=== PATIENT | male | born 1940 | race Caucasian/White ===

== ENCOUNTER 2020-08-12 16:46 | Emergency (ER) | payer MEDICARE, BC ==
[2020-08-12] MEDS ORDERED: PROTONIX 40 MG IV IV ONE ×2 (17:38→17:49)
[2020-08-12] MEDS ORDERED: Reglan 10 MG/2 ML IV ONE (17:38)
[2020-08-12] MEDS ORDERED: Sodium Chloride 0.9% 1000 ML 1,000 ML IV STA (17:38)
[2020-08-12] MEDS ORDERED: MORPHINE SULFATE 4 MG INJ IV ONE ×2 (17:38→19:22)
[2020-08-12] MEDS ORDERED: TYLENOL 325 MG PO ONE (17:38)
--- NOTE | 2020-08-12 17:45 | ERPHSYRPT ---
- History of Present Illness Patient Subjective Stated Complaint: Pt c/o of fever, headache, cough, eyes burning, nauseous, fatigued, sore throat Triage Nursing Assessment: Pt brought to the ER by his , hypertensive, de nies pain at this time, overall feels bad, cough, congestion, fatigued, skin n/w/d, bowel sounds heard in all 4, nauseous, dry heaves Timing/Duration: day(s) (3), gradual onset, worse Severity: moderate Associated Symptoms: nausea, shortness of breath, cough, chills, chest pain, fever, headaches, loss of appetite, malaise, weakness, No vomiting Hx Tetanus, Diphtheria Vaccination/Date Given: Yes (UP TO DATE) Hx Influenza Vaccination/Date Given: No Hx Pneumococcal Vaccination/Date Given: No <FILIBERTO BONILLA - Last Filed: 08/12/20 18:50> <DANIKA LIM - Last Filed: 08/12/20 21:52> - History of Present Illness Time Seen by Provider: 08/12/20 16:51 Physician History: 79 years old male with multiple medical problems including coronary artery disease status post stenting, 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 Today he started to have nausea and dry heaving with minimal epigastric discomfort earlier which is improved now. Denies any abdominal pain otherwise. He was dry heaving for 5 minutes but could not vomit. No diarrhea. Denies any known sick contact. Cough is wet to dry and comes in bouts and associated shortness of breath with it. Patient is feeling weak tired and exhausted with no energy to do his routine activities. (FILIBERTO BONILLA) Allergies/Adverse Reactions: metoprolol tartrate [From Lopressor] Adverse Reaction (Verified 08/12/20 17:11) ramipril [From Altace] Adverse Reaction (Verified 08/12/20 17:11) Home Medications: Tamsulosin HCl 0.4 mg [Flomax 0.4 MG] 0.4 mg PO DAILY 08/04/14 [History] Warfarin Sodium 3 mg [Coumadin 3 MG] 3 mg PO DAILY 08/04/14 [History] Carvedilol 6.25 mg [Coreg 6.25 MG] 6.25 mg PO BID 08/12/20 [History] Finasteride [Proscar] 5 mg PO DAILY 08/12/20 [History] Lansoprazole [Prevacid] 30 mg PO DAILY 08/12/20 [History] Levocetirizine Dihydrochloride 5 mg PO DAILY 08/12/20 [History] Rosuvastatin Calcium 10 mg PO DAILY 08/12/20 [History] Travel Risk - International Travel Have you traveled outside of the country in past 3 weeks: No - Coronavirus Screening Are you exhibiting any of the following symptoms?: No Close contact with a COVID-19 positive Pt in past 14-21 Days: No <FILIBERTO BONILLA - Last Filed: 08/12/20 18:50> - Past Medical History Pertinent Past Medical History: Yes Neurological History: Stroke ENT History: No Pertinent History Cardiac History: Coronary Artery Disease, Deep Vein Thrombosis, High Cholesterol, Hypertension, Myocardial Infarction ([place]), Peripheral Vascular Disease Respiratory History: No Pertinent History Endocrine Medical History: No Pertinent History Musculoskeletal History: Degenerative Disk Disease, Osteoarthritis, Other GI Medical History: No Pertinent History History: Other Psycho-Social History: No Pertinent History Male Reproductive Disorders: No Pertinent History Other Medical History: 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 SX HX: STENT PLACMENT X 2, FILTER PLACEMENT IN LEFT GROIN - Past Surgical History Past Surgical History: Yes Neuro Surgical History: No Pertinent History Cardiac: Cardiac Catheterization, Cardiac Stent, Vascular Surgery Respiratory: No Pertinent History Gastrointestinal: Cholecystectomy Genitourinary: No Pertinent History Musculoskeletal: No Pertinent History Male Surgical History: No Pertinent History - Social History Smoking Status: Never smoker Exposure to second hand smoke: No Drug Use: none Patient Lives Alone: No <FILIBERTO BONILLA - Last Filed: 08/12/20 18:50> - Physical Exam General Appearance: no apparent distress, alert Eye Exam: PERRL/EOMI, eyes nml inspection Ears, Nose, Throat Exam: pharyngeal erythema Neck Exam: normal inspection, non-tender, supple, full range of motion Respiratory Exam: normal breath sounds, lungs clear, No chest tenderness Cardiovascular Exam: regular rate/rhythm, normal heart sounds Gastrointestinal/Abdomen Exam: soft, normal bowel sounds, tenderness (Minimal tenderness epigastrium. 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 Inferior Q waves), Q-wave <FILIBERTO BONILLA - Last Filed: 08/12/20 18:50> - CT Exams Abdomen/Pelvis CT Interpretation: Tele-radiologist Report (; Up to 4.7 cm with focal narrowing mid transverse colon possible stricture possible mass. Stable IVC filter within the right common iliac vein. Enlarged prostate gland remaining abdomen pelvis negative.) <DANIKA LIM - Last Filed: 08/12/20 21:52> Ordered Tests: Active Orders 24 hr Category Date Time Status EKG-ER Only STAT Care 08/12/20 17:38 Active IV Insertion STAT Care 08/12/20 17:38 Active IV Insertion-2nd Peripheral STAT Care 08/12/20 19:39 Active ABDOMEN AND PELVIS W/0 CONTRAS [CT] Stat Exams 08/12/20 18:58 Taken CHEST 1 VIEW (PORTABLE) Stat Exams 08/12/20 17:38 Taken BLOOD CULTURE Stat Lab 08/12/20 18:15 Received CBC W DIFF Stat Lab 08/12/20 18:00 Completed CMP Stat Lab 08/12/20 18:00 Completed LIPASE Stat Lab 08/12/20 18:00 Completed Lactic Acid Stat Lab 08/12/20 17:38 Completed PT INR [PROTIME WITH INR] Stat Lab 08/12/20 18:00 Completed TROPONIN Q3H Lab 08/12/20 18:00 Completed TROPONIN Q3H Lab 08/12/20 21:15 Received TROPONIN Q3H Lab 08/12/20 23:45 Ordered TROPONIN Q3H Lab 08/13/20 02:45 Ordered TROPONIN Q3H Lab 08/13/20 05:45 Ordered Medication Summary Discontinued Medications Generic Name Dose Route Start Last Admin Trade Name Ozzyq PRN Reason Stop Dose Admin Acetaminophen 975 mg 08/12/20 17:38 08/12/20 17:54 Tylenol 325 Mg PO 08/12/20 17:39 975 mg STAT ONE Administration Acetaminophen Confirm 08/12/20 17:49 Tylenol 325 Mg Administered 08/12/20 17:50 Dose 975 mg .ROUTE .STK-MED ONE Al Hydrox/Mg Hydrox/Simethicone Confirm 08/12/20 19:08 Maalox Es 30 Ml Unit Dose Administered 08/12/20 19:09 Dose 30 ml .ROUTE .STK-MED ONE Sodium Chloride 1,000 mls @ 499 mls/hr 08/12/20 17:38 08/12/20 20:11 Sodium Chloride 0.9% 1000 Ml IV 08/12/20 19:38 Infused .Q2H1M STA Infusion Sodium Chloride Confirm 08/12/20 17:50 Sodium Chloride 0.9% 1000 Ml Administered 08/12/20 17:51 Dose 1,000 mls @ ud .ROUTE .STK-MED ONE Lidocaine HCl Confirm 08/12/20 19:08 Xylocaine Hcl Viscous * Administered 08/12/20 19:09 Dose 15 ml .ROUTE .STK-MED ONE Magnesium Hydroxide 45 ml 08/12/20 19:02 08/12/20 19:10 Gi Cocktail 45 Ml (Maalox/Lidocaine) PO 08/12/20 19:03 45 ml STAT ONE Administration Metoclopramide HCl 10 mg 08/12/20 17:38 08/12/20 17:55 Reglan 10 Mg/2 Ml IV 08/12/20 17:39 10 mg STAT ONE Administration Metoclopramide HCl Confirm 08/12/20 17:49 Reglan 10 Mg/2 Ml Administered 08/12/20 17:50 Dose 10 mg .ROUTE .STK-MED ONE Morphine Sulfate 4 mg 08/12/20 17:38 08/12/20 17:57 Morphine Sulfate 4 Mg Inj IV 08/12/20 17:39 4 mg STAT ONE Administration Morphine Sulfate Confirm 08/12/20 17:49 Morphine Sulfate 4 Mg Inj Administered 08/12/20 17:50 Dose 4 mg .ROUTE .STK-MED ONE Morphine Sulfate 4 mg 08/12/20 19:22 08/12/20 19:24 Morphine Sulfate 4 Mg Inj IV 08/12/20 19:23 4 mg STAT ONE Administration Morphine Sulfate Confirm 08/12/20 19:23 Morphine Sulfate 4 Mg Inj Administered 08/12/20 19:24 Dose 4 mg .ROUTE .STK-MED ONE Pantoprazole Sodium 40 mg 08/12/20 17:38 08/12/20 17:57 Protonix 40 Mg Iv IV 08/12/20 17:39 40 mg STAT ONE Administration Pantoprazole Sodium Confirm 08/12/20 17:49 Protonix 40 Mg Iv Administered 08/12/20 17:50 Dose 40 mg IV .STK-MED ONE Lab/Rad Data: Laboratory Result Diagrams 08/12/20 18:00 08/12/20 18:00 Laboratory Results 08/12/20 08/12/20 08/12/20 Range/Units 18:00 18:00 18:00 WBC (4.0-10.5) K/mm3 RBC (4.1-5.6) M/mm3 Hgb (12.5-18.0) gm/dl Hct (42-50) % MCV (78-100) fl MCH (26-32) pg MCHC (32-36) g/dl RDW (11.5-14.0) % Plt Count (150-450) K/mm3 MPV (7.5-11.0) fl Gran % (36.0-66.0) % Eos # (Auto) (0-0.5) Absolute Lymphs (auto) (1.0-4.6) Absolute Monos (auto) (0.0-1.3) Lymphocytes % (24.0-44.0) % Monocytes % (0.0-12.0) % Eosinophils % (0.00-5.0) % Basophils % (0.0-0.4) % Absolute Granulocytes (1.4-6.9) Basophils # (0-0.4) PT 27.5 H (8.83-12.87) SECONDS INR 2.41 (0.8-3.0) Sodium 132 L (137-145) mmol/L Potassium 3.9 (3.5-5.1) mmol/L Chloride 103 (98-107) mmol/L Carbon Dioxide 23 (22-30) mmol/L Anion Gap 9.5 (5-15) MEQ/L BUN 13 (9-20) mg/dL Creatinine 1.16 (0.66-1.25) mg/dL Estimated GFR > 60.0 ML/MIN Glucose 112 H (74-106) mg/dL Lactic Acid (0.4-2.0) Calcium 8.1 L (8.4-10.2) mg/dL Total Bilirubin 0.50 (0.2-1.3) mg/dL AST 33 (17-59) U/L ALT 28 (0-50) U/L Alkaline Phosphatase 51 (38-126) U/L Troponin I < 0.012 (0.000-0.034) ng/mL Serum Total Protein 6.6 (6.3-8.2) g/dL Albumin 3.7 (3.5-5.0) g/dL Lipase 47 (23-300) U/L 08/12/20 08/12/20 Range/Units 18:00 17:38 WBC 4.2 (4.0-10.5) K/mm3 RBC 4.94 (4.1-5.6) M/mm3 Hgb 13.4 (12.5-18.0) gm/dl Hct 41.6 L (42-50) % MCV 84.2 (78-100) fl MCH 27.1 (26-32) pg MCHC 32.2 (32-36) g/dl RDW 16.6 H (11.5-14.0) % Plt Count 120 L (150-450) K/mm3 MPV 10.9 (7.5-11.0) fl Gran % 81.0 H (36.0-66.0) % Eos # (Auto) 0.02 (0-0.5) Absolute Lymphs (auto) 0.35 L (1.0-4.6) Absolute Monos (auto) 0.39 (0.0-1.3) Lymphocytes % 8.4 L (24.0-44.0) % Monocytes % 9.4 (0.0-12.0) % Eosinophils % 0.5 (0.00-5.0) % Basophils % 0.7 (0.0-0.4) % Absolute Granulocytes 3.37 (1.4-6.9) Basophils # 0.03 (0-0.4) PT (8.83-12.87) SECONDS INR (0.8-3.0) Sodium (137-145) mmol/L Potassium (3.5-5.1) mmol/L Chloride (98-107) mmol/L Carbon Dioxide (22-30) mmol/L Anion Gap (5-15) MEQ/L BUN (9-20) mg/dL Creatinine (0.66-1.25) mg/dL Estimated GFR ML/MIN Glucose (74-106) mg/dL Lactic Acid 0.7 (0.4-2.0) Calcium (8.4-10.2) mg/dL Total Bilirubin (0.2-1.3) mg/dL AST (17-59) U/L ALT (0-50) U/L Alkaline Phosphatase (38-126) U/L Troponin I (0.000-0.034) ng/mL Serum Total Protein (6.3-8.2) g/dL Albumin (3.5-5.0) g/dL Lipase (23-300) U/L - Progress Progress: improved Discussed with : Musa Will see patient in: office Counseled pt/family regarding: lab results, diagnosis, need for follow-up, rad results <DANIKA LIM - Last Filed: 08/12/20 21:52> - Progress Progress Note: 08/12/20 21:39 Patient initially evaluated by Dr. Bonilla. Work-up initiated by Dr. Bonilla. Patient endorsed to Dr. Lim at approximately [address] Lim advised to follow- up on pending CT abdomen pelvis and reassess patient. CT abdomen reveals right hemicolon area distended up to 4.7 cm with focal narrowing mid transverse colon. Query stricture versus possible mass. Stable IVC filter in her right common il iac vein. Enlarged prostate gland. Remaining abdomen pelvis negative. Patient reassessed. Epigastric pain essentially resolved. Imaging findings and lab results discussed with Dr. Sneed over phone conversation. Dr. Sneed states that he feels patient would be appropriate for discharge. I agree. Work-up of the possible mass identified on CAT scan abdomen pelvis will occur as an outpatient. Patient was updated on the findings as well. Patient understands importance of following up with his primary care doctor/his surgeon Dr. Millan for further evaluation of this mass. Case/CT abdomen pelvis findings/possible mass was discussed with Dr. Millan. He will follow up with patient as an outpatient. He will call patient's home in the morning to establish a follow-up appointment. 08/12/20 21:46 (DANIKA LIM) <FILIBERTO BONILLA - Last Filed: 08/12/20 18:50> - Departure Departure Disposition: Home Critical Care Time: No <DANIKA LIM - Last Filed: 08/12/20 21:52> - Departure Clinical Impression: Colon stricture, Colonic mass, Enlarged prostate Condition: Stable Referrals: KRIS SNEED [Primary Care Provider] - Additional Instructions: CAT scan abdomen pelvis performed on August 12, 2020 reveals right hemicolon air distention up to 4.7 cm with focal narrowing mid transverse colon possible stricture versus possible mass. Enlarged prostate gland identified as well. Due to the above-mentioned findings on CAT scan it is imperative that you follow-up with Dr. Sneed and or Dr. Millan your general surgeon for further evaluation and treatment of this possible mass of your large intestine. Discharge/Care Plan SHANA FERNANDO was seen on 08/12/20 in the Emergency Room. The patient was counseled regarding Diagnosis,Lab results, Imaging studies, need for follow up and when to return to the Emergency Room. Prescriptions given: Discharge Note I have spoken with the patient and/or caregivers. I have explained the patient's condition, diagnosis and treatment plan based on the information available to me at this time. I have answered the patient's and/or caregiver's questions and addressed any concerns. The patient and/or caregivers have as good understanding of the patient's diagnosis, condition and treatment plan as can be expected at this point. The vital signs have been stable. The patient's condition is stable and appropriate for discharge from the emergency department. The patient will pursue further outpatient evaluation with the primary care physician or other designated or consulting physician as outlined in the discharge instructions. The patient and/or caregivers are agreeable to this plan of care and follow-up instructions have been explained in detail. The patient and/or caregivers have received these instruction. The patient/and or caregivers are aware that any significant change in condition or worsening of symptoms should prompt an immediate return to this or the closest emergency department or call 911.
[2020-08-12] MEDS ORDERED: TYLENOL 325 MG ONE (17:49)
[2020-08-12] MEDS ORDERED: Reglan 10 MG/2 ML ONE (17:49)
[2020-08-12] MEDS ORDERED: MORPHINE SULFATE 4 MG INJ ONE ×2 (17:49→19:23)
[2020-08-12] MEDS ORDERED: Sodium Chloride 0.9% 1000 ML 1,000 ML ONE (17:50)
[2020-08-12 18:27] LABS: Absolute Neutrophil Ct (ANC) 3.37 (1.4-6.9); BASOPHIL % 0.7 % (0.0-0.4); Basophil (Absolute #) 0.03 (0-0.4); Eosinophil % 0.5 % (0.00-5.0); Eosinophil (Absolute #) 0.02 (0-0.5); Hematocrit 41.6 % (42-50); Hemoglobin 13.4 gm/dl (12.5-18.0); Lymphocyte (Absolute #) 0.35 (1.0-4.6); Lymphocytes % 8.4 % (24.0-44.0); Mean Cell Volume 84.2 fl (78-100); Mean Corpuscular Hemoglobin 27.1 pg (26-32); Mean Corpuscular Hgb Concent. 32.2 g/dl (32-36); Mean Platelet Volume 10.9 fl (7.5-11.0); Monocyte (Absolute #) 0.39 (0.0-1.3); Monocytes % 9.4 % (0.0-12.0); Platelet Count 120 K/mm3 (150-450); Red Blood Count 4.94 M/mm3 (4.1-5.6); Red Cell Distribution Width 16.6 % (11.5-14.0); White Blood Count 4.2 K/mm3 (4.0-10.5)
[2020-08-12 18:33] LABS: INR 2.41 (0.8-3.0); PROTIME 27.5 SECONDS (8.83-12.87)
[2020-08-12 18:37] LABS: ALBUMIN 3.7 g/dL (3.5-5.0); ALKALINE PHOSPHATASE 51 U/L (38-126); ANION GAP 9.5 MEQ/L (5-15); BLOOD UREA NITROGEN 13 mg/dL (9-20); CHLORIDE 103 mmol/L (98-107); Calcium 8.1 mg/dL (8.4-10.2); Carbon Dioxide 23 mmol/L (22-30); Creatinine 1 1.16 mg/dL (0.66-1.25); EST GLOMERULAR FILTRATION RATE > 60.0 ML/MIN; Glucose 112 mg/dL (74-106); LIPASE 47 U/L (23-300); Potassium 3.9 mmol/L (3.5-5.1); SGOT/AST 33 U/L (17-59); SGPT/ALT 28 U/L (0-50); SODIUM 132 mmol/L (137-145); Total Protein 6.6 g/dL (6.3-8.2)
[2020-08-12] MEDS ORDERED: GI COCKTAIL 45 ML (Maalox/Lidocaine) PO ONE (19:02)
[2020-08-12] MEDS ORDERED: MAALOX ES 30 ML UNIT DOSE ONE (19:08)
[2020-08-12] MEDS ORDERED: XYLOCAINE HCl Viscous ONE (19:08)
[2020-08-12 21:59] VITALS: BP 150/82; PULSE 72; O2SAT 95
[2020-08-12 22:55] LABS: Slide Review 1 YES
--- NOTE | 2020-08-13 08:56 | XRAY ---
Indication: Upper abdomen pain, short of breath, nausea. Multiple contiguous axial images obtained through the abdomen and pelvis without contrast as ordered. Comparison: July 02, 2010. Visualized lung bases again demonstrates right hemidiaphragm elevation with right base atelectasis. Mild increasing bibasilar subsegmental atelectasis/scarring. Heart is not enlarged. Noncontrasted stomach and bowel loops are nonobstructed. Normal appendix. Right hemicolon is now air distended up to 4.7 cm with transition point midtransverse colon. Query physiologic Camacho's ring versus stricture from scarring versus underlying mass. More distal colon is normal in course and caliber. No free fluid/air. Again previous cholecystectomy. Enlarged prostate gland impresses on the base of the bladder not previously imaged. Remaining liver, pancreas, spleen, adrenal glands, kidneys, ureters, and bladder are unremarkable for noncontrast exam. Increasing mild scattered aortoiliac calcifications without AAA. Stable IVC predominantly in the right common iliac vein. Osseous structures intact with mild osteopenia and mild/moderate multilevel thoracolumbar degenerative spondylosis. Impression: 1. New air distended right hemicolon up to mid transverse colon. Rule out Camacho's ring versus stricture from scarring versus mass. 2. Enlarged prostate gland. 3. Again incidental right hemidiaphragm elevation with adjacent lung atelectasis, IVC filter in right common iliac vein, and chronic bony findings.
--- NOTE | 2020-08-13 08:58 | XRAY ---
Indication: Headache and cough. Comparison: July 14, 2010. Portable chest again demonstrates chronic right hemidiaphragm elevation with adjacent atelectasis. Remaining heart and lungs unremarkable. Bony thorax intact again with mild degenerative changes. No new/acute findings.
== END 2020-08-12 22:05 | disposition home or self-care (01) ==
LOC: ED 16:46
DX: R50.9 Fever, unspecified (principal); R51.9 Headache, unspecified; R05 Cough; R11.0 Nausea; R53.83 Other fatigue; R07.0 Pain in throat; I25.10 Atherosclerotic heart disease of native coronary artery without angina pectoris; Z79.01 Long term (current) use of anticoagulants; K63.89 Other specified diseases of intestine; N40.0 Benign prostatic hyperplasia without lower urinary tract symptoms; I82.409 Acute embolism and thrombosis of unspecified deep veins of unspecified lower extremity; I10 Essential (primary) hypertension; E78.5 Hyperlipidemia, unspecified
CPT/HCPCS: 36000; 36415; 71045; 74176; 80053; 83605; 83690; 84484; 85025; 85610; 87040; 93005; 96360; 96361; 96374; 96375; 96376; 99285; J2270; A9270-GY

== ENCOUNTER 2020-08-14 02:24 | Observation (INO) | payer MEDICARE, BC ==
[2020-08-14] MEDS ORDERED: DECADRON 10MG INJ. IV ONE (02:57)
[2020-08-14] MEDS ORDERED: BABY ASPIRIN 81 MG CHEW PO ONE (02:58)
[2020-08-14] MEDS ORDERED: Zofran 4 MG/2 ML VIAL IV ONE (02:58)
[2020-08-14] MEDS ORDERED: BABY ASPIRIN 81 MG CHEW ONE (03:02)
[2020-08-14] MEDS ORDERED: Zofran 4 MG/2 ML VIAL ONE (03:02)
[2020-08-14] MEDS ORDERED: DECADRON 10MG INJ. ONE (03:02)
[2020-08-14] MEDS ORDERED: TYLENOL EXTRA STRENGTH 500 MG PO STA (03:03)
--- NOTE | 2020-08-14 03:06 | ERPHSYRPT ---
- History of Present Illness Time Seen by Provider: 08/14/20 02:47 Source: patient Exam Limitations: no limitations Physician History: Patient is here with cough, Covid-like symptoms. Seen yesterday for similar symptoms. Negative cardiac work-up and chest x-ray at that point time. Patient did have a CT scan that demonstrated possible colon cancer. He does have foll ow-up scheduled for this. Patient has no other falls, trauma, new symptoms. Patient states he has continued cough with a borderline fever. Therefore, he returns to the emergency department today. He states he has been doing home Tylenol and ibuprofen. States that he is concerned because he has not been sleeping very much. He is also been doing [id number] cough medication. Timing/Duration: day(s) Severity: moderate Modifying Factors: Improves With: other Associated Symptoms: other Allergies/Adverse Reactions: metoprolol tartrate [From Lopressor] Adverse Reaction (Verified 08/14/20 03:11) ramipril [From Altace] Adverse Reaction (Verified 08/14/20 03:11) Home Medications: Tamsulosin HCl 0.4 mg [Flomax 0.4 MG] 0.4 mg PO DAILY 08/04/14 [History] Warfarin Sodium 3 mg [Coumadin 3 MG] 3 mg PO DAILY 08/04/14 [History] Carvedilol 6.25 mg [Coreg 6.25 MG] 6.25 mg PO BID 08/12/20 [History] Finasteride [Proscar] 5 mg PO DAILY 08/12/20 [History] Lansoprazole [Prevacid] 30 mg PO DAILY 08/12/20 [History] Levocetirizine Dihydrochloride 5 mg PO DAILY 08/12/20 [History] Rosuvastatin Calcium 10 mg PO DAILY 08/12/20 [History] Hx Tetanus, Diphtheria Vaccination/Date Given: Yes (UP TO DATE) Hx Influenza Vaccination/Date Given: No Hx Pneumococcal Vaccination/Date Given: No Travel Risk - International Travel Have you traveled outside of the country in past 3 weeks: No - Coronavirus Screening Are you exhibiting any of the following symptoms?: Yes - Review of Systems Constitutional: Fever, Chills Eyes: No Symptoms Ears, Nose, & Throat: No Symptoms Respiratory: Cough, No Dyspnea Cardiac: No Chest Pain, No Edema, No Syncope Abdominal/Gastrointestinal: No Abdominal Pain, No Nausea, No Vomiting, No Diarrhea Genitourinary Symptoms: No Dysuria Musculoskeletal: No Back Pain, No Neck Pain Skin: No Rash Neurological: No Dizziness, No Focal Weakness, No Sensory Changes Psychological: No Symptoms Endocrine: No Symptoms All Other Systems: Reviewed and Negative - Past Medical History Pertinent Past Medical History: Yes Neurological History: Stroke ENT History: No Pertinent History Cardiac History: Coronary Artery Disease, Deep Vein Thrombosis, High Cholesterol, Hypertension, Myocardial Infarction ([place]), Peripheral Vascular Disease Respiratory History: No Pertinent History Endocrine Medical History: No Pertinent History Musculoskeletal History: Degenerative Disk Disease, Osteoarthritis, Other GI Medical History: No Pertinent History History: Other Psycho-Social History: No Pertinent History Male Reproductive Disorders: No Pertinent History Other Medical History: 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 SX HX: STENT PLACMENT X 2, FILTER PLACEMENT IN LEFT GROIN - Past Surgical History Past Surgical History: Yes Neuro Surgical History: No Pertinent History Cardiac: Cardiac Catheterization, Cardiac Stent, Vascular Surgery Respiratory: No Pertinent History Gastrointestinal: Cholecystectomy Genitourinary: No Pertinent History Musculoskeletal: No Pertinent History Male Surgical History: No Pertinent History - Social History Smoking Status: Never smoker Exposure to second hand smoke: No Drug Use: none Patient Lives Alone: No - Nursing Vital Signs Nursing Vital Signs: Initial Vital Signs Temperature 100.3 F 08/14/20 02:25 Pulse Rate 77 08/14/20 02:25 Respiratory Rate 18 08/14/20 02:25 Blood Pressure 162/84 08/14/20 02:25 O2 Sat by Pulse Oximetry 94 L 08/14/20 02:25 Pain Scale Pain Intensity 7 - Physical Exam General Appearance: no apparent distress, alert Eye Exam: PERRL/EOMI, eyes nml inspection Ears, Nose, Throat Exam: normal ENT inspection, TMs normal, pharynx normal, moist mucous membranes Neck Exam: normal inspection, non-tender, supple, full range of motion Respiratory Exam: normal breath sounds, lungs clear, other (Lungs clear, no wheezing.), No respiratory distress Cardiovascular Exam: regular rate/rhythm, normal heart sounds, normal peripheral pulses Gastrointestinal/Abdomen Exam: soft, normal bowel sounds, No tenderness, No mass Back Exam: normal inspection, normal range of motion, No CVA tenderness, No vertebral tenderness Extremity Exam: normal inspection, normal range of motion, pelvis stable Neurologic Exam: alert, oriented x 3, cooperative, normal mood/affect, nml cerebellar function, nml station & gait, sensation nml, No motor deficits Skin Exam: normal color, warm, dry, No rash Lymphatic Exam: No adenopathy - Course Nursing assessment & vital signs reviewed: Yes EKG Interpreted by Me: Sinus Rhythm Ordered Tests: Active Orders 24 hr Category Date Time Status Weight Clerk STAT Care 08/14/20 02:59 Active Code Status Order ROUTINE Care 08/14/20 04:47 Active IV Care Q6H Care 08/14/20 04:[address] in Observation ROUTINE Care 08/14/20 04:47 Active CHEST 1 VIEW (PORTABLE) Stat Exams 08/14/20 02:58 Taken CBC W DIFF AM.LAB Lab 08/15/20 04:00 Ordered CBC W DIFF Stat Lab 08/14/20 03:00 Completed CMP Stat Lab 08/14/20 03:00 Completed LIPASE Stat Lab 08/14/20 03:00 Completed Lactic Acid AM.LAB Lab 08/15/20 04:00 Ordered NT PRO BNP Stat Lab 08/14/20 03:00 Completed TROPONIN Q3H Lab 08/14/20 03:00 Completed TROPONIN Q3H Lab 08/14/20 06:00 Ordered TROPONIN Q3H Lab 08/14/20 09:00 Ordered TROPONIN Q3H Lab 08/14/20 12:00 Ordered TROPONIN Q3H Lab 08/14/20 15:00 Ordered Medication Summary Generic Name Dose Route Start Last Admin Trade Name Freq PRN Reason Stop Dose Admin Propofol 100 mls @ 2.562 mls/hr 08/14/20 04:37 Propofol 1000 Mg/100 Ml Bottle IV 09/13/20 04:36 .Q24H PRN AGITATION Protocol 5 MCG/KG/MIN Piperacillin Sod/Tazobactam 100 mls @ 200 mls/hr 08/14/20 06:00 Sod 4.5 gm/ Sodium Chloride IV 09/13/20 05:59 Q6HT PERRI Ketorolac Tromethamine 30 mg 08/14/20 04:47 Toradol 30 Mg Injection IV 08/19/20 04:46 Q6H PRN PRN PAIN Morphine Sulfate 4 mg 08/14/20 04:47 Morphine Sulfate 4 Mg Inj IV 08/19/20 04:46 Q4H PRN PRN PAIN Ondansetron HCl 4 mg 08/14/20 04:47 Zofran 4 Mg/2 Ml Vial IV 09/13/20 04:46 Q6H PRN PRN NAUSEA/VOMITING Discontinued Medications Generic Name Dose Route Start Last Admin Trade Name Freq PRN Reason Stop Dose Admin Acetaminophen 1,000 mg 08/14/20 03:03 08/14/20 03:09 Tylenol Extra Strength 500 Mg PO 08/14/20 03:04 1,000 mg STAT STA Administration Acetaminophen Confirm 08/14/20 03:08 Tylenol Extra Strength 500 Mg Administered 08/14/20 03:09 Dose 1,000 mg .ROUTE .STK-MED ONE Aspirin 324 mg 08/14/20 02:58 08/14/20 03:05 Baby Aspirin 81 Mg Chew PO 08/14/20 02:59 324 mg STAT ONE Administration Aspirin Confirm 08/14/20 03:02 Baby Aspirin 81 Mg Chew Administered 08/14/20 03:03 Dose 324 mg .ROUTE .STK-MED ONE Dexamethasone Sodium Phosphate 10 mg 08/14/20 02:57 08/14/20 03:05 Decadron 10mg Inj. IV 08/14/20 02:58 10 mg STAT ONE Administration Dexamethasone Sodium Phosphate Confirm 08/14/20 03:02 Decadron 10mg Inj. Administered 08/14/20 03:03 Dose 10 mg .ROUTE .STK-MED ONE Ondansetron HCl 8 mg 08/14/20 02:58 08/14/20 03:03 Zofran 4 Mg/2 Ml Vial IV 08/14/20 02:59 8 mg STAT ONE Administration Ondansetron HCl Confirm 08/14/20 03:02 Zofran 4 Mg/2 Ml Vial Administered 08/14/20 03:03 Dose 8 mg .ROUTE .STK-MED ONE Lab/Rad Data: Laboratory Result Diagrams 08/14/20 03:00 08/14/20 03:00 Laboratory Results 08/14/20 08/14/20 08/14/20 Range/Units 03:30 03:00 03:00 WBC (4.0-10.5) K/mm3 RBC (4.1-5.6) M/mm3 Hgb (12.5-18.0) gm/dl Hct (42-50) % MCV (78-100) fl MCH (26-32) pg MCHC (32-36) g/dl RDW (11.5-14.0) % Plt Count (150-450) K/mm3 MPV (7.5-11.0) fl Gran % (36.0-66.0) % Eos # (Auto) (0-0.5) Absolute Lymphs (auto) (1.0-4.6) Absolute Monos (auto) (0.0-1.3) Lymphocytes % (24.0-44.0) % Monocytes % (0.0-12.0) % Eosinophils % (0.00-5.0) % Basophils % (0.0-0.4) % Absolute Granulocytes (1.4-6.9) Basophils # (0-0.4) Sodium 132 L (137-145) mmol/L Potassium 3.6 (3.5-5.1) mmol/L Chloride 102 (98-107) mmol/L Carbon Dioxide 23 (22-30) mmol/L Anion Gap 10.9 (5-15) MEQ/L BUN 14 (9-20) mg/dL Creatinine 1.15 (0.66-1.25) mg/dL Estimated GFR > 60.0 ML/MIN Glucose 125 H (74-106) mg/dL Calcium 8.2 L (8.4-10.2) mg/dL Total Bilirubin 0.90 (0.2-1.3) mg/dL AST 260 H (17-59) U/L ALT 387 H (0-50) U/L Alkaline Phosphatase 120 (38-126) U/L Troponin I < 0.012 (0.000-0.034) ng/mL NT-Pro-B Natriuret Pep 856 (0-1800) pg/mL Serum Total Protein 6.6 (6.3-8.2) g/dL Albumin 3.7 (3.5-5.0) g/dL Lipase 51 (23-300) U/L SARS-CoV-2 (PCR) POSITIVE A (NEGATIVE) Slides for Path Review 08/14/20 Range/Units 03:00 WBC 4.3 (4.0-10.5) K/mm3 RBC 4.70 (4.1-5.6) M/mm3 Hgb 12.9 (12.5-18.0) gm/dl Hct 39.4 L (42-50) % MCV 83.8 (78-100) fl MCH 27.4 (26-32) pg MCHC 32.7 (32-36) g/dl RDW 16.6 H (11.5-14.0) % Plt Count 105 L (150-450) K/mm3 MPV 10.2 (7.5-11.0) fl Gran % 86.7 H (36.0-66.0) % Eos # (Auto) 0 (0-0.5) Absolute Lymphs (auto) 0.33 L (1.0-4.6) Absolute Monos (auto) 0.23 (0.0-1.3) Lymphocytes % 7.7 L (24.0-44.0) % Monocytes % 5.4 (0.0-12.0) % Eosinophils % 0.0 (0.00-5.0) % Basophils % 0.2 (0.0-0.4) % Absolute Granulocytes 3.72 (1.4-6.9) Basophils # 0.01 (0-0.4) Sodium (137-145) mmol/L Potassium (3.5-5.1) mmol/L Chloride (98-107) mmol/L Carbon Dioxide (22-30) mmol/L Anion Gap (5-15) MEQ/L BUN (9-20) mg/dL Creatinine (0.66-1.25) mg/dL Estimated GFR ML/MIN Glucose (74-106) mg/dL Calcium (8.4-10.2) mg/dL Total Bilirubin (0.2-1.3) mg/dL AST (17-59) U/L ALT (0-50) U/L Alkaline Phosphatase (38-126) U/L Troponin I (0.000-0.034) ng/mL NT-Pro-B Natriuret Pep (0-1800) pg/mL Serum Total Protein (6.3-8.2) g/dL Albumin (3.5-5.0) g/dL Lipase (23-300) U/L SARS-CoV-2 (PCR) (NEGATIVE) Slides for Path Review YES - Progress Progress: improved Progress Note: 08/14/20 03:05 Patient here with cough, fever, chills. Differential diagnosis includes STEMI, NSTEMI, COVID-19, pneumonia, electrolyte abnormality. We will do an outpatient Covid swab, chest x-ray, Decadron. We will do basic labs, troponin, EKG. EKG compared to EKG from number. This EKG demonstrated no obvious abnormalities compared to the previous. 08/14/20 04:51 Patient has elevated liver enzymes. Patient also has positive Covid. Was likely need an ultrasound this morning. However given his Covid we will meet the patient to the hospital given that he is mildly hypoxic, coughing, this is his second visit in 24 hours. Discussed over the phone with on-call physician, Dr. Garibay. He agrees with admission. He states that he will follow-up on the liver enzymes. They were normal 24 hours ago. Therefore patient may benefit from right upper quadrant ultrasound or repeat imaging of his abdomen. After reviewing labs, appropriate imaging, discussion with patient and family. We decided the patient should be admitted to the hospital. I called the inpatient team discussed history, physical and results with them in detail. We decided on the plan of action and admission to [facility]. We agreed on appropriate consults and who would call them. Discussed with Dr.: Other (Stephanie) Will see patient in: hospital (observation) - Departure Departure Disposition: Home Clinical Impression: COVID-19, Elevated LFTs Condition: Stable Critical Care Time: No Referrals: KRIS SNEED [Primary Care Provider] -
[2020-08-14] MEDS ORDERED: TYLENOL EXTRA STRENGTH 500 MG ONE (03:08)
[2020-08-14 03:10] LABS: Absolute Neutrophil Ct (ANC) 3.72 (1.4-6.9); BASOPHIL % 0.2 % (0.0-0.4); Basophil (Absolute #) 0.01 (0-0.4); Eosinophil (Absolute #) 0 (0-0.5); Hematocrit 39.4 % (42-50); Hemoglobin 12.9 gm/dl (12.5-18.0); Lymphocyte (Absolute #) 0.33 (1.0-4.6); Lymphocytes % 7.7 % (24.0-44.0); Mean Cell Volume 83.8 fl (78-100); Mean Corpuscular Hemoglobin 27.4 pg (26-32); Mean Corpuscular Hgb Concent. 32.7 g/dl (32-36); Mean Platelet Volume 10.2 fl (7.5-11.0); Monocyte (Absolute #) 0.23 (0.0-1.3); Monocytes % 5.4 % (0.0-12.0); Neutrophil % 86.7 % (36.0-66.0); Platelet Count 105 K/mm3 (150-450); Red Cell Distribution Width 16.6 % (11.5-14.0); White Blood Count 4.3 K/mm3 (4.0-10.5)
[2020-08-14 03:32] LABS: ALBUMIN 3.7 g/dL (3.5-5.0); ALKALINE PHOSPHATASE 120 U/L (38-126); ANION GAP 10.9 MEQ/L (5-15); BLOOD UREA NITROGEN 14 mg/dL (9-20); CHLORIDE 102 mmol/L (98-107); Calcium 8.2 mg/dL (8.4-10.2); Carbon Dioxide 23 mmol/L (22-30); Creatinine 1 1.15 mg/dL (0.66-1.25); EST GLOMERULAR FILTRATION RATE > 60.0 ML/MIN; Glucose 125 mg/dL (74-106); LIPASE 51 U/L (23-300); NT PRO BNP 856 pg/mL (0-1800); Potassium 3.6 mmol/L (3.5-5.1); SGOT/AST 260 U/L (17-59); SGPT/ALT 387 U/L (0-50); SODIUM 132 mmol/L (137-145); Total Protein 6.6 g/dL (6.3-8.2)
[2020-08-14 04:23] LABS: Slide Review 1 YES
[2020-08-14] MEDS ORDERED: Propofol 1000 mg/100 ml Bottle 100 ML IV PRN (04:37)
[2020-08-14] MEDS ORDERED: TORAdol 30 mg Injection IV PRN (04:47)
[2020-08-14] MEDS ORDERED: MORPHINE SULFATE 4 MG INJ IV PRN (04:47)
[2020-08-14] MEDS ORDERED: Zofran 4 MG/2 ML VIAL IV PRN (04:47)
[2020-08-14] MEDS ORDERED: Zosyn 3.375 GM Vial IV ONE (05:34)
[2020-08-14] MEDS ORDERED: Sodium Chloride 100ML MINI-BAG PLUS 100 ML IV ONE (05:35)
[2020-08-14] MEDS ORDERED: SODIUM CHLORIDE MINI IV SCH (06:00)
[2020-08-14] MEDS ORDERED: ZOSYN IV SCH (06:00)
[2020-08-14 06:32] LABS: Appearance SLIGHTLY CLOUDY (CLEAR); Bilirubin NEGATIVE (NEGATIVE); Blood SMALL Ery/ul (0-5); Epithelial Cells RARE /HPF (FEW); Glucose >=500 mg/dL (NEGATIVE); Ketones NEGATIVE (NEGATIVE); Leukocyte Esterase NEGATIVE (NEGATIVE); Mucus SLIGHT /HPF (NEGATIVE); Nitrite NEGATIVE (NEGATIVE); Protein,Urine Dip 100 (Negative); Specific Gravity 1.022 (1.005-1.025); Urobilinogen NEGATIVE mg/dL (0-1)
--- NOTE | 2020-08-14 09:01 | XRAY ---
Indication: Cough. Comparison: August 12, 2020. Portable apical lordotic chest less inflated again with chronic right hemidiaphragm elevation and right base atelectasis. Remaining heart and lungs unremarkable.
[2020-08-14] MEDS ORDERED: NON-FORMULARY ITEM (Lansoprazole [Prevacid] 30 MG) PO SCH (10:00)
[2020-08-14] MEDS ORDERED: NON-FORMULARY ITEM (Rosuvastatin Calcium [Rosuvastatin Calcium] 10 MG) PO SCH (10:00)
[2020-08-14] MEDS ORDERED: NON-FORMULARY ITEM (Levocetirizine Dihydrochloride [Levocetirizine Dihydrochloride] 5 MG) PO SCH (10:00)
[2020-08-14] MEDS: ZOCOR 20MG PO SCH (11:00)
[2020-08-14] MEDS: Proscar 5 MG PO SCH (11:00)
[2020-08-14] MEDS: CLARITIN 10 MG PO SCH (11:00)
[2020-08-14] MEDS: Protonix 40MG Tablet PO SCH (11:01)
[2020-08-14] MEDS: Flomax 0.4 MG PO SCH (11:01)
[2020-08-14] MEDS: Coreg 6.25 MG PO SCH ×2 (11:01→21:47)
[2020-08-14] MEDS ORDERED: REMDESIVIR 200 MG in Sodium Chloride 0.9% 250 ML 250 ML IV ONE (12:00)
[2020-08-14] MEDS ORDERED: Zosyn INJ 4.5 GM in Sodium Chloride 100ML MINI-BAG PLUS 100 ML IV SCH (12:00)
[2020-08-14] MEDS: Decadron 4 MG INJ IV SCH ×2 (12:16→21:47)
[2020-08-14] MEDS ORDERED: Coumadin 3 MG PO SCH (18:00)
[2020-08-14] MEDS ORDERED: Ativan 1 MG PO SCH (22:00)
[2020-08-15 07:15] LABS: Absolute Neutrophil Ct (ANC) 5.36 (1.4-6.9); Basophil (Absolute #) 0 (0-0.4); Eosinophil (Absolute #) 0 (0-0.5); Hematocrit 39.9 % (42-50); Hemoglobin 12.6 gm/dl (12.5-18.0); Lymphocyte (Absolute #) 0.29 (1.0-4.6); Lymphocytes % 4.9 % (24.0-44.0); Mean Cell Volume 85.4 fl (78-100); Mean Corpuscular Hgb Concent. 31.6 g/dl (32-36); Monocyte (Absolute #) 0.26 (0.0-1.3); Monocytes % 4.4 % (0.0-12.0); Neutrophil % 90.7 % (36.0-66.0); Platelet Count 101 K/mm3 (150-450); Red Blood Count 4.67 M/mm3 (4.1-5.6); Red Cell Distribution Width 17.3 % (11.5-14.0); White Blood Count 5.9 K/mm3 (4.0-10.5)
[2020-08-15 08:57] LABS: Slide Review 1 YES
[2020-08-15] MEDS ORDERED: REMDESIVIR 100 MG in Sodium Chloride 0.9% 100 ML IVPB 100 ML IV SCH (10:00)
[2020-08-15] MEDS ORDERED: DELTASONE 20 MG PO SCH (10:40)
[2020-08-15] MEDS: ZOCOR 20MG PO SCH (10:54)
[2020-08-15] MEDS: Protonix 40MG Tablet PO SCH (10:54)
[2020-08-15] MEDS: CLARITIN 10 MG PO SCH (10:55)
[2020-08-15] MEDS: Coreg 6.25 MG PO SCH (10:55)
[2020-08-15] MEDS: Flomax 0.4 MG PO SCH (10:55)
[2020-08-15] MEDS: Proscar 5 MG PO SCH (10:55)
[2020-08-15 11:32] VITALS: BP 126/69
[2020-08-15 14:09] VITALS: PULSE 60; O2SAT 93
[2020-08-16] MEDS ORDERED: DELTASONE 20 MG PO SCH (10:00)
--- NOTE | 2020-08-18 09:09 | HP ---
CHIEF COMPLAINT: Achiness, vomiting, cough, low grade fever. HISTORY OF PRESENT ILLNESS: The patient was seen yesterday in the emergency room and diagnosed with COVID and negative cardiac. Chest x-ray was I believe okay. I believe he got the antibodies and then went home. However, he came back the next evening feeling very bad, having trouble holding fluids down, hurting all over and coughing. He had a severe headache after the Eliana Faye antibodies which he said has gone away after I woke him up this morning. He also had some liver problems. He had a CT of his abdomen that found a mass in his colon. He is seeing Dr. Millan the next week to set up a scope I guess. He did not know his liver enzymes have gone up since the last time he was in the emergency room. I am not for sure what that is from. I will try to get a copy of the previous CT. PAST MEDICAL HISTORY: Prior to that he had some benign prostatic hypertrophy. He is anticoagulated for pulmonary emboli. History of myocardial infarction. He takes anticholesterol medicine. He has peripheral vascular disease, hypertension, degenerative disc disease, osteoarthritis. He said he is short of breath on exertion getting worse. HOME MEDICATIONS: Flomax 0.4 q.d., Coumadin 3 mg q.d., Coreg 6.25 q.d., Proscar 5 mg q.d., Prevacid 30 q.d., levocetirizine 5 mg q.d., rosuvastatin 10 mg q.d. He has not had a flu shot. He has not had a pneumonia shot. ALLERGIES: METOPROLOL. RAMIPRIL. REVIEW OF SYSTEMS: CONSTITUTIONAL: Fever, chills. HEENT: No problems hearing or seeing. RESPIRATORY: Having cough, some shortness of breath on exertion now. CVS: History of heart attack in the past, nothing recently. No bypass surgery. GI: The patient did have some vomiting earlier in the emergency room. He was able to keep clear fluids down for breakfast. : No problems urinating while he is on his medications. NEUROLOGIC: He has had some tiny strokes in the past he stated which showed up on CT. PSYCHOLOGIC: He denies any depression or changes in thought. PHYSICAL EXAMINATION: The patient is alert, orientated, appropriately aged. VITAL SIGNS: Temperature 100F, pulse 77, respirations 18, blood pressure 162/84. O2 saturation 94% this morning. Pain intensity was 7 because of the headache. HEENT: Pupils equal and reactive to light. NECK: Supple without adenopathy. CHEST: Few crackles bilateral. CVS: Regular rate. No murmurs or gallops. ABDOMEN: Little scars from cholecystectomy. Normal bowel sounds. No tenderness. EXTREMITIES: Some peripheral stasis changes. No edema. No heat. LAB DATA AND TESTS: The patient's electrolytes were normal except for sodium 132. His hemoglobin was 12.9, normal differential. His BNP was normal at 856. His SARS COVID-2 antibody was positive. His EKG with no changes from the past, sinus rhythm, essentially normal. Liver enzymes are slightly minimally elevated but were not two days earlier. Cardiac enzymes were normal x2. UA was normal. I did not find the D-dimer on the chart. The x-ray shows the right hemidiaphragm elevation with right base atelectasis and increase of basal segmental atelectasis scarring. CT of the chest and abdomen showed distended right hemicolon up the mid transverse; rule out Camacho's ring versus stricture from scarring versus mass. Inferior vena cava filter right common iliac. Chest x-ray showed some right base atelectasis. IMPRESSION: The patient has nausea, severe headache, malaise, myalgia from COVID post-antibodies the day before. PLAN: Will treat him with Decadron, Remdesivir, IV fluids, pain medicines. He has been referred for evaluation for the transverse colon lesion. PROGNOSIS: Fair.
== END 2020-08-15 14:23 | disposition home or self-care (01) ==
LOC: ED 02:24 → MED SURG 05:29
PROVIDERS: ADMIT Family Medicine; ATTEND Family Medicine
DX: U07.1 COVID-19 (principal); R94.5 Abnormal results of liver function studies; K63.9 Disease of intestine, unspecified; Z79.899 Other long term (current) drug therapy; Z79.01 Long term (current) use of anticoagulants; R53.81 Other malaise; M79.10 Myalgia, unspecified site; I25.10 Atherosclerotic heart disease of native coronary artery without angina pectoris
CPT/HCPCS: 36000; 36415; 71045; 80053; 81001; 83690; 83880; 84484; 85025; 93268; 94762; 96374; 96375; 99285; G0378; U0003; J1100; J2405; A9270-GY

== ENCOUNTER 2020-08-18 16:25 | Inpatient (IN) | payer MEDICARE, BC ==
[2020-08-18 16:53] LABS: Absolute Neutrophil Ct (ANC) 7.58 (1.4-6.9); BASOPHIL % 0.1 % (0.0-0.4); Basophil (Absolute #) 0.01 (0-0.4); Eosinophil (Absolute #) 0 (0-0.5); Hematocrit 41.9 % (42-50); Hemoglobin 13.3 gm/dl (12.5-18.0); Lymphocyte (Absolute #) 0.24 (1.0-4.6); Lymphocytes % 2.9 % (24.0-44.0); Mean Corpuscular Hgb Concent. 31.7 g/dl (32-36); Mean Platelet Volume 10.3 fl (7.5-11.0); Monocyte (Absolute #) 0.41 (0.0-1.3); Platelet Count 145 K/mm3 (150-450); Red Blood Count 4.93 M/mm3 (4.1-5.6); Red Cell Distribution Width 17.3 % (11.5-14.0); White Blood Count 8.2 K/mm3 (4.0-10.5)
[2020-08-18 17:00] LABS: INR 3.31 (0.8-3.0); PROTIME 37.9 SECONDS (8.83-12.87)
[2020-08-18 17:02] LABS: PTT 33.7 SECONDS (24.1-36.1)
--- NOTE | 2020-08-18 17:06 | XRAY ---
Indication: Hypoxia. Dyspnea. Positive Covid 19. Comparison: August 12 and August 14, 2020. Portable chest remains unchanged again demonstrating chronic right hemidiaphragm elevation with adjacent atelectasis. Remaining heart and lungs unremarkable. No new/acute findings.
[2020-08-18 17:13] LABS: ALBUMIN 3.2 g/dL (3.5-5.0); ANION GAP 8.4 MEQ/L (5-15); Calcium 8.2 mg/dL (8.4-10.2); Creatinine 1 1.28 mg/dL (0.66-1.25); EST GLOMERULAR FILTRATION RATE 57.9 ML/MIN; Potassium 3.9 mmol/L (3.5-5.1); Total Protein 6.2 g/dL (6.3-8.2)
--- NOTE | 2020-08-18 17:52 | ERPHSYRPT ---
- History of Present Illness Source: patient, EMS Exam Limitations: no limitations Patient Subjective Stated Complaint: Was tested covid pos aug 15 and spent 2 days admiitted to [facility] covid unit. sent home then back today d/t persistent cough and shortness of breath. Triage Nursing Assessment: Aaox3, labored resp noted, aug 15 tested postive for covid 19, her d/t increased sob and persisitent cough. Was discharged from [facility] covid unit 2 days ago. spo2 86 % on 5lnc at home. Physician History: 79 yo wm discharged from [facility] unit on 08/15/20 presents w low sats. Pt on 5L O2 at home. Pt has a dry cough/coryzas/myalgias/arthralgias but denies N/V /D/melena/hematochezia/chest pain. Timing/Duration: today Activities at Onset: rest Severity of Dyspnea-Max: severe Severity of Dyspnea-Current: moderate Possible Cause: no prior episodes Modifying Factors: Improves With: rest Associated Symptoms: cough, loss of appetite, weakness, No chest pain/discomfort, No edema, No fever, No insomnia, No hemoptysis, No calf pain, No dizziness, No heaviness, No heart racing, No lightheadedness, No leg swelling, No muscle spasms feet Allergies/Adverse Reactions: metoprolol tartrate [From Lopressor] Adverse Reaction (Verified 08/14/20 03:11) ramipril [From Altace] Adverse Reaction (Verified 08/14/20 03:11) Home Medications: Tamsulosin HCl 0.4 mg [Flomax 0.4 MG] 0.4 mg PO DAILY 08/04/14 [History] Warfarin Sodium 3 mg [Coumadin 3 MG] 2.5 mg PO DAILY 08/04/14 [History] Carvedilol 6.25 mg [Coreg 6.25 MG] 6.25 mg PO BID 08/12/20 [History] Finasteride [Proscar] 5 mg PO DAILY 08/12/20 [History] Lansoprazole [Prevacid] 30 mg PO DAILY 08/12/20 [History] Levocetirizine Dihydrochloride 5 mg PO DAILY 08/12/20 [History] Rosuvastatin Calcium 10 mg PO DAILY 08/12/20 [History] Hx Tetanus, Diphtheria Vaccination/Date Given: Yes (UP TO DATE) Hx Influenza Vaccination/Date Given: Yes Hx Pneumococcal Vaccination/Date Given: No Travel Risk - International Travel Have you traveled outside of the country in past 3 weeks: No - Coronavirus Screening Are you exhibiting any of the following symptoms?: Yes Symptoms: Cough: New Onset, Shortness of Breath Close contact with a COVID-19 positive Pt in past 14-21 Days: Yes - Review of Systems Constitutional: Chills, Fatigue, Lethargy Eyes: No Symptoms Ears, Nose, & Throat: Nose Congestion Respiratory: Cough, Dyspnea, Dyspnea on Exertion (MCNAIR) Cardiac: No Symptoms Abdominal/Gastrointestinal: No Nausea, No Vomiting, No Diarrhea Musculoskeletal: Arthralgias, Deformity Skin: No Symptoms Neurological: No Symptoms, Headache Psychological: No Symptoms Endocrine: No Symptoms Hematologic/Lymphatic: No Symptoms Immunological/Allergic: No Symptoms - Past Medical History Pertinent Past Medical History: Yes Neurological History: Stroke ENT History: No Pertinent History Cardiac History: Coronary Artery Disease, Deep Vein Thrombosis, High Cholesterol, Hypertension, Myocardial Infarction (CO), Peripheral Vascular Disease Respiratory History: No Pertinent History Endocrine Medical History: No Pertinent History Musculoskeletal History: Degenerative Disk Disease, Osteoarthritis, Other GI Medical History: No Pertinent History History: Other Psycho-Social History: No Pertinent History Male Reproductive Disorders: No Pertinent History Other Medical History: 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 SX HX: STENT PLACMENT X 2, FILTER PLACEMENT IN LEFT GROIN - Past Surgical History Past Surgical History: Yes Neuro Surgical History: No Pertinent History Cardiac: Cardiac Catheterization, Cardiac Stent, Vascular Surgery Respiratory: No Pertinent History Gastrointestinal: Cholecystectomy Genitourinary: No Pertinent History Musculoskeletal: No Pertinent History Male Surgical History: No Pertinent History - Social History Smoking Status: Never smoker Exposure to second hand smoke: No Drug Use: none Patient Lives Alone: No Significant Family History: no pertinent family hx - Nursing Vital Signs Nursing Vital Signs: Initial Vital Signs Temperature 98.9 F 08/18/20 16:26 Pulse Rate 62 08/18/20 16:26 Respiratory Rate 28 H 08/18/20 16:26 Blood Pressure 113/68 08/18/20 16:26 O2 Sat by Pulse Oximetry 93 L 08/18/20 16:26 Pain Scale Pain Intensity 0 - Physical Exam General Appearance: mild distress Eye Exam: PERRL/EOMI, eyes nml inspection Ears, Nose, Throat Exam: hearing grossly normal, normal ENT inspection, normal pharynx Neck Exam: normal inspection, non-tender, No Brudzinski, No Kernig's, No meningismus, No carotid bruit Respiratory Exam: respiratory distress (Mild), crackles/rales (1/2 up B) Cardiovascular/Chest Exam: normal heart sounds, regular rate/rhythm Abdominal/Gastrointestinal Exam: soft, normal bowel sounds, tenderness Extremity Exam: non-tender, normal range of motion, normal inspection Peripheral Pulses Exam: carotid (R): 2+, carotid (L): 2+ Neurologic Exam: alert, oriented x 3, cooperative, director compensation II-XII nml as tested, normal mood/affect, sensation nml, No motor deficits, No sensory deficit Skin Exam: normal color, warm, dry Lymphatic Exam: No adenopathy SpO2 Interpretation: normal SpO2: 95 - Course Nursing assessment & vital signs reviewed: Yes EKG Interpreted by Me: RATE (NSR/R60/Normal QT-QTc/Qwave3 and AVF/Flat T waves) - Radiology Exams Chest X-ray Interpretation: Discussed w/ radiologist (No change) Ordered Tests: Active Orders 24 hr Category Date Time Status Fitting Room Maintenance Mechanic STAT Care 08/18/20 16:30 Completed EKG-ER Only STAT Care 08/18/20 16:29 Completed IV Insertion STAT Care 08/18/20 16:45 Completed IV Insertion-2nd Peripheral STAT Care 08/18/20 16:45 Completed Oxygen-ED Only NON-REBREATHER 100% Care 08/18/20 16:29 Completed CHEST 1 VIEW (PORTABLE) Stat Exams 08/18/20 16:30 Completed BLOOD CULTURE Urgent Lab 08/18/20 16:30 Received CBC W DIFF AM.LAB Lab 08/19/20 04:00 Ordered CBC W DIFF Stat Lab 08/18/20 16:30 Completed CMP AM.LAB Lab 08/19/20 04:00 Ordered CMP Stat Lab 08/18/20 16:30 Completed D-DIMER QUANTITATIVE Stat Lab 08/18/20 16:30 Completed Lactic Acid AM.LAB Lab 08/19/20 04:00 Ordered Lactic Acid Stat Lab 08/18/20 16:52 Completed NT PRO BNP Stat Lab 08/18/20 16:30 Completed PROTIME WITH INR Stat Lab 08/18/20 16:30 Completed PTT Stat Lab 08/18/20 16:30 Completed TROPONIN Q3H Lab 08/18/20 16:30 Completed TROPONIN Q3H Lab 08/18/20 18:55 Completed TROPONIN Q3H Lab 08/18/20 22:30 Ordered TROPONIN Q3H Lab 08/19/20 00:30 Ordered TROPONIN Q3H Lab 08/19/20 01:30 Ordered TROPONIN Q3H Lab 08/19/20 03:30 Ordered TROPONIN Q3H Lab 08/19/20 04:30 Ordered TROPONIN Q3H Lab 08/19/20 06:30 Ordered UA W/RFX UR CULTURE Routine Lab 08/18/20 18:28 Ordered Transfer Order Routine Transfer 08/18/20 Completed Medication Summary Generic Name Dose Route Start Last Admin Trade Name Freq PRN Reason Stop Dose Admin Acetaminophen 500 mg 08/18/20 20:32 Tylenol Extra Strength 500 Mg PO 09/17/20 20:31 Q4HPRN PRN PAIN AND/OR FEVER Albuterol Sulfate 4 puff 08/18/20 18:27 Ventolin Common Canister IH 09/17/20 18:26 Q4H PRN PRN SHORTNESS OF BREATH/WHEEZING Dexamethasone Sodium Phosphate 4 mg 08/18/20 22:00 Decadron 4 Mg Inj IV 09/17/20 21:59 BID PERRI Famotidine 20 mg 08/18/20 22:00 Pepcid 20 Mg Vial IV 09/17/20 21:59 Q12HT PERRI Sodium Chloride 1,000 mls @ 0 mls/hr 08/18/20 18:30 Sodium Chloride 0.9% 1000 Ml IV 09/17/20 18:29 .Q0M PERRI KVO Remdesivir 100 mg/ Sodium 100 mls @ 100 mls/hr 08/19/20 22:00 Chloride IV 08/22/20 22:59 Q24H PERRI Remdesivir 200 mg/ Sodium 250 mls @ 125 mls/hr 08/18/20 22:00 Chloride IV 08/18/20 23:59 ONCE ONE Lorazepam 1 mg 08/18/20 20:32 Ativan 2 Mg/1 Ml Vial IV 09/17/20 20:31 Q6H PRN PRN ANXIETY Ondansetron HCl 4 mg 08/18/20 18:27 Zofran 4 Mg/2 Ml Vial IV 09/17/20 18:26 Q6H PRN PRN NAUSEA/VOMITING Discontinued Medications Generic Name Dose Route Start Last Admin Trade Name Yue PRN Reason Stop Dose Admin Dexamethasone Sodium Phosphate 4 mg 08/18/20 18:25 08/18/20 18:29 Decadron 4 Mg Inj IV 08/18/20 18:26 4 mg STAT ONE Administration Dexamethasone Sodium Phosphate Confirm 08/18/20 18:28 Decadron 4 Mg Inj Administered 08/18/20 18:29 Dose 4 mg .ROUTE .STK-MED ONE Remdesivir 100 mg/ Sodium 100 mls @ 100 mls/hr 08/18/20 18:45 Chloride IV 08/21/20 19:44 Q24H PERRI Remdesivir 200 mg/ Sodium 250 mls @ 125 mls/hr 08/18/20 18:33 Chloride IV 08/18/20 20:32 ONCE ONE Lab/Rad Data: Laboratory Result Diagrams 08/18/20 16:30 08/18/20 16:30 Laboratory Results 08/18/20 08/18/20 08/18/20 Range/Units 16:52 16:30 16:30 WBC (4.0-10.5) K/mm3 RBC (4.1-5.6) M/mm3 Hgb (12.5-18.0) gm/dl Hct (42-50) % MCV (78-100) fl MCH (26-32) pg MCHC (32-36) g/dl RDW (11.5-14.0) % Plt Count (150-450) K/mm3 MPV (7.5-11.0) fl Gran % (36.0-66.0) % Eos # (Auto) (0-0.5) Absolute Lymphs (auto) (1.0-4.6) Absolute Monos (auto) (0.0-1.3) Lymphocytes % (24.0-44.0) % Monocytes % (0.0-12.0) % Eosinophils % (0.00-5.0) % Basophils % (0.0-0.4) % Absolute Granulocytes (1.4-6.9) Basophils # (0-0.4) PT (8.83-12.87) SECONDS INR (0.8-3.0) APTT (24.1-36.1) SECONDS D-Dimer 565 H* (215-500) ng/mL Sodium (137-145) mmol/L Potassium (3.5-5.1) mmol/L Chloride (98-107) mmol/L Carbon Dioxide (22-30) mmol/L Anion Gap (5-15) MEQ/L BUN (9-20) mg/dL Creatinine (0.66-1.25) mg/dL Estimated GFR ML/MIN Glucose (74-106) mg/dL Lactic Acid 2.0 (0.4-2.0) Calcium (8.4-10.2) mg/dL Total Bilirubin (0.2-1.3) mg/dL AST (17-59) U/L ALT (0-50) U/L Alkaline Phosphatase (38-126) U/L Troponin I < 0.012 (0.000-0.034) ng/mL NT-Pro-B Natriuret Pep (0-1800) pg/mL Serum Total Protein (6.3-8.2) g/dL Albumin (3.5-5.0) g/dL 08/18/20 08/18/20 08/18/20 Range/Units 16:30 16:30 16:30 WBC 8.2 (4.0-10.5) K/mm3 RBC 4.93 (4.1-5.6) M/mm3 Hgb 13.3 (12.5-18.0) gm/dl Hct 41.9 L (42-50) % MCV 85.0 (78-100) fl MCH 27.0 (26-32) pg MCHC 31.7 L (32-36) g/dl RDW 17.3 H (11.5-14.0) % Plt Count 145 L (150-450) K/mm3 MPV 10.3 (7.5-11.0) fl Gran % 92.0 H (36.0-66.0) % Eos # (Auto) 0 (0-0.5) Absolute Lymphs (auto) 0.24 L (1.0-4.6) Absolute Monos (auto) 0.41 (0.0-1.3) Lymphocytes % 2.9 L (24.0-44.0) % Monocytes % 5.0 (0.0-12.0) % Eosinophils % 0.0 (0.00-5.0) % Basophils % 0.1 (0.0-0.4) % Absolute Granulocytes 7.58 H (1.4-6.9) Basophils # 0.01 (0-0.4) PT 37.9 H (8.83-12.87) SECONDS INR 3.31 H (0.8-3.0) APTT 33.7 (24.1-36.1) SECONDS D-Dimer (215-500) ng/mL Sodium 139 (137-145) mmol/L Potassium 3.9 (3.5-5.1) mmol/L Chloride 108 H (98-107) mmol/L Carbon Dioxide 26 (22-30) mmol/L Anion Gap 8.4 (5-15) MEQ/L BUN 34 H (9-20) mg/dL Creatinine 1.28 H (0.66-1.25) mg/dL Estimated GFR 57.9 ML/MIN Glucose 124 H (74-106) mg/dL Lactic Acid (0.4-2.0) Calcium 8.2 L (8.4-10.2) mg/dL Total Bilirubin 1.00 (0.2-1.3) mg/dL AST 177 H (17-59) U/L ALT 204 H (0-50) U/L Alkaline Phosphatase 80 (38-126) U/L Troponin I (0.000-0.034) ng/mL NT-Pro-B Natriuret Pep 454 (0-1800) pg/mL Serum Total Protein 6.2 L (6.3-8.2) g/dL Albumin 3.2 L (3.5-5.0) g/dL - Progress Progress: improved Air Movement: fair Progress Note: 08/18/20 18:[address] Garibay 08/18/20 18:26 Wants to start Decadron/Remdisivir 08/18/20 20:45 Pt w good sats on 100% FM - Departure Departure Disposition: Observation Clinical Impression: COVID-19 Condition: Stable Critical Care Time: No
[2020-08-18] MEDS ORDERED: Decadron 4 MG INJ IV ONE (18:25)
[2020-08-18] MEDS ORDERED: VENTOLIN COMMON CANISTER IH PRN (18:27)
[2020-08-18] MEDS ORDERED: Zofran 4 MG/2 ML VIAL IV PRN (18:27)
[2020-08-18] MEDS ORDERED: Decadron 4 MG INJ ONE (18:28)
[2020-08-18] MEDS ORDERED: Sodium Chloride 0.9% 1000 ML 1,000 ML IV SCH (18:30)
[2020-08-18] MEDS ORDERED: REMDESIVIR 200 MG in Sodium Chloride 0.9% 250 ML 250 ML IV ONE ×2 (18:33→22:00)
[2020-08-18] MEDS ORDERED: REMDESIVIR 100 MG in Sodium Chloride 0.9% 100 ML IVPB 100 ML IV SCH (18:45)
[2020-08-18] MEDS ORDERED: TYLENOL EXTRA STRENGTH 500 MG PO PRN (20:32)
[2020-08-18] MEDS ORDERED: Sodium Chloride 0.9% 250 ML 250 ML IV ONE (20:45)
[2020-08-18 21:22] LABS: Appearance CLEAR (CLEAR); Bilirubin SMALL (NEGATIVE); Blood NEGATIVE Ery/ul (0-5); Glucose >=500 mg/dL (NEGATIVE); Ketones NEGATIVE (NEGATIVE); Leukocyte Esterase NEGATIVE (NEGATIVE); Mucus SLIGHT /HPF (NEGATIVE); Nitrite NEGATIVE (NEGATIVE); Protein,Urine Dip 30 (Negative); Specific Gravity 1.023 (1.005-1.025); Urobilinogen 4 mg/dL (0-1)
[2020-08-18] MEDS: Pepcid 20 MG VIAL IV SCH (22:04)
[2020-08-18 22:06] LABS: Slide Review 1 YES
[2020-08-19] MEDS: Ativan 2 MG/1 ML VIAL IV PRN ×2 (00:04→21:43)
[2020-08-19 06:38] LABS: Absolute Neutrophil Ct (ANC) 5.71 (1.4-6.9); BASOPHIL % 0.2 % (0.0-0.4); Basophil (Absolute #) 0.01 (0-0.4); Eosinophil (Absolute #) 0 (0-0.5); Hematocrit 40.7 % (42-50); Hemoglobin 12.7 gm/dl (12.5-18.0); Lymphocyte (Absolute #) 0.29 (1.0-4.6); Lymphocytes % 4.6 % (24.0-44.0); Mean Cell Volume 86.2 fl (78-100); Mean Corpuscular Hemoglobin 26.9 pg (26-32); Mean Corpuscular Hgb Concent. 31.2 g/dl (32-36); Mean Platelet Volume 11.6 fl (7.5-11.0); Monocyte (Absolute #) 0.28 (0.0-1.3); Monocytes % 4.5 % (0.0-12.0); Neutrophil % 90.7 % (36.0-66.0); Platelet Count 145 K/mm3 (150-450); Red Blood Count 4.72 M/mm3 (4.1-5.6); Red Cell Distribution Width 17.6 % (11.5-14.0); White Blood Count 6.3 K/mm3 (4.0-10.5)
[2020-08-19 06:50] LABS: INR 2.85 (0.8-3.0); PROTIME 32.6 SECONDS (8.83-12.87)
[2020-08-19 06:54] LABS: ALBUMIN 2.8 g/dL (3.5-5.0); ALKALINE PHOSPHATASE 70 U/L (38-126); ANION GAP 8.1 MEQ/L (5-15); BLOOD UREA NITROGEN 34 mg/dL (9-20); CHLORIDE 110 mmol/L (98-107); Calcium 7.7 mg/dL (8.4-10.2); Carbon Dioxide 26 mmol/L (22-30); Creatinine 1 1.15 mg/dL (0.66-1.25); EST GLOMERULAR FILTRATION RATE > 60.0 ML/MIN; Glucose 116 mg/dL (74-106); Potassium 4.4 mmol/L (3.5-5.1); SGOT/AST 74 U/L (17-59); SGPT/ALT 163 U/L (0-50); SODIUM 139 mmol/L (137-145); Total Protein 5.7 g/dL (6.3-8.2)
[2020-08-19] MEDS ORDERED: Hydromorphone 1 mg/ml Injection IV PRN ×2 (08:57→10:12)
[2020-08-19 09:18] LABS: Slide Review 1 YES
[2020-08-19] MEDS: Pepcid 20 MG VIAL IV SCH ×2 (09:53→21:44)
[2020-08-19] MEDS: ZOCOR 20MG PO SCH (09:53)
[2020-08-19] MEDS: Decadron 4 MG INJ IV SCH ×3 (09:53→21:44)
[2020-08-19] MEDS: Flomax 0.4 MG PO SCH (09:53)
[2020-08-19] MEDS: Proscar 5 MG PO SCH (09:53)
[2020-08-19] MEDS: Coreg 6.25 MG PO SCH ×2 (09:53→21:43)
[2020-08-19] MEDS: Protonix 40MG Tablet PO SCH (09:53)
[2020-08-19] MEDS: CLARITIN 10 MG PO SCH ×2 (09:54→10:19)
[2020-08-19] MEDS ORDERED: NON-FORMULARY ITEM (Lansoprazole [Prevacid] 30 MG) PO SCH (10:00)
[2020-08-19] MEDS ORDERED: NON-FORMULARY ITEM (Rosuvastatin Calcium [Rosuvastatin Calcium] 10 MG) PO SCH (10:00)
[2020-08-19] MEDS ORDERED: NON-FORMULARY ITEM (Levocetirizine Dihydrochloride [Levocetirizine Dihydrochloride] 5 MG) PO SCH (10:00)
[2020-08-19 11:40] LABS: A-aADO2 599; ABG HEMOGLOBIN 12.5; ABG POTASSIUM 4.1 (3.5-5.1); ARTERIAL BLD GAS O2 SATURATION 95.8 % (95-100); ARTERIAL BLOOD GAS BASE EXCESS 0.8 (-2.0-2.0); ARTERIAL BLOOD GAS FIO2 100 %; ARTERIAL BLOOD GAS PCO2 34 mmHg (35-45); ARTERIAL BLOOD GAS PO2 72 mmHg (75-100); ARTERIAL BLOOD GAS pH 7.46 (7.35-7.45); CARBOXYHEMOGLOBIN 1.3 % THgb (0.0-6.9); HCO3- 24.2 (22-28); HGB O2 SAT 93.6 g/dF (94-100); paO2 pAO1 0.11
[2020-08-19 11:41] LABS: ABG SITE LEFT RADIAL; ALLEN TEST OK? yes
--- NOTE | 2020-08-19 14:47 | HP ---
CHIEF COMPLAINT: Shortness of breath, hypoxia. HISTORY OF PRESENT ILLNESS: The patient is a 79 year old white male who was here on 08/15/2020, three days ago with COVID. He received I think two doses of Remdesivir and wanted to go home. He seemed to be stable on 3 liters of oxygen. His is a long-term nurse patient care assistant in surgery, so we sent him home on oxygen. However his oxygen started dropping yesterday and on the day of admission it was down in the 70's and 80's and they called an ambulance. He has no history of chronic obstructive pulmonary disease, does not smoke. Denies any chest pain, just shortness of breath. Denies any GI-type symptoms. He tested positive around 08/13/2020. MEDICATIONS: Flomax 0.4 q.d., Coumadin 3 mg q.d. for history of deep venous thrombosis, carvedilol 6.25 mg, Proscar 5 q.d., Prevacid 30 q.d., levocetirizine 5 mg q.d., rosuvastatin 10 q.d. ALLERGIES: METOPROLOL. RAMIPRIL. PAST MEDICAL HISTORY: Peripheral vascular disease, hypertension, degenerative disc disease, osteoarthritis. The patient does have a mass in the transverse colon which we are waiting for him to improve, follow up with Dr. Millan for probably endoscopy. REVIEW OF SYSTEMS: CONSTITUTIONAL: The patient is fatigued, coughing, some chills, low grade fever, short of breath. HEENT: No problems hearing or seeing. RESPIRATORY: No heart failure in the past. No smoking. CVS: Hypertension on carvedilol. Hyperlipidemia. Myocardial infarction in the distant past. MUSCULOSKELETAL: The patient has had back surgery, has three lower discs out and he has severe neck pain at times and disc disease there. EXTREMITIES: The patient has history of deep venous thrombosis. Peripheral vascular disease. He said he can walk okay. SOCIAL HISTORY: He lives with his . He only has one daughter. PHYSICAL EXAMINATION: The patient is alert, orientated, very short of breath. VITAL SIGNS: Temperature 98F, pulse 70, blood pressure 120/70. O2 on rebreather 95%. HEENT: Pupils equal and reactive to light. Normal hearing and vision. CHEST: Few crackles bilaterally, alf up the back. Percussion normal. CVS: No murmurs or gallops. Heart sounds are distant. ABDOMEN: Soft. No tenderness or organomegaly. EXTREMITIES: Fair pulses. No edema. Not cyanotic. NEUROLOGIC: The patient is alert, orientated. Cranial nerves are intact. Can move all arms and legs normally. LAB DATA AND TESTS: CMP basically normal except for INR of 3.31 due to being on Coumadin. Lactic acid borderline at 2.0. White count 8, hemoglobin 13.3. D-dimer 600. IMPRESSION: The patient has bilateral COVID pneumonia, history of coronary artery disease, degenerative back disease, deep venous thrombosis. PLAN: At this time continue his anticoagulation, start on Remdesivir, Decadron, high flow oxygen.
[2020-08-19] MEDS: Coumadin 5 MG PO SCH (17:41)
[2020-08-19] MEDS: DOXEPIN HCL PO SCH (21:43)
[2020-08-20] MEDS: Pepcid 20 MG VIAL IV SCH ×2 (09:36→21:32)
[2020-08-20] MEDS: Protonix 40MG Tablet PO SCH (09:36)
[2020-08-20] MEDS: REMDESIVIR 100 MG in Sodium Chloride 0.9% 100 ML IVPB 100 ML IV SCH (09:36)
[2020-08-20] MEDS: Decadron 4 MG INJ IV SCH (09:36)
[2020-08-20] MEDS: ZOCOR 20MG PO SCH (09:36)
[2020-08-20] MEDS: Proscar 5 MG PO SCH (09:36)
[2020-08-20] MEDS: Flomax 0.4 MG PO SCH (09:36)
[2020-08-20] MEDS: Coreg 6.25 MG PO SCH ×2 (09:37→21:31)
[2020-08-20 10:22] LABS: INR 3.42 (0.8-3.0); PROTIME 39.1 SECONDS (8.83-12.87)
[2020-08-20 10:27] LABS: ALKALINE PHOSPHATASE 75 U/L (38-126); ANION GAP 8.8 MEQ/L (5-15); BLOOD UREA NITROGEN 34 mg/dL (9-20); CHLORIDE 108 mmol/L (98-107); Carbon Dioxide 28 mmol/L (22-30); EST GLOMERULAR FILTRATION RATE > 60.0 ML/MIN; Glucose 121 mg/dL (74-106); Potassium 4.2 mmol/L (3.5-5.1); SGOT/AST 54 U/L (17-59); SGPT/ALT 126 U/L (0-50); SODIUM 141 mmol/L (137-145); Total Protein 5.9 g/dL (6.3-8.2)
[2020-08-20] MEDS: Coumadin 5 MG PO SCH (17:16)
[2020-08-20] MEDS: solu-MEDROL 125 MG IV SCH ×2 (18:32→23:36)
[2020-08-20 20:58] LABS: ABO TYPING A; Antibody Screen NEGATIVE (NEGATIVE); RH TYPING POSITIVE
[2020-08-20] MEDS: DOXEPIN HCL PO SCH (21:32)
[2020-08-20] MEDS: Ativan 2 MG/1 ML VIAL IV PRN (21:32)
[2020-08-21 05:45] LABS: Hemoglobin 12.6 gm/dl (12.5-18.0); Mean Cell Volume 86.4 fl (78-100); Mean Corpuscular Hemoglobin 27.2 pg (26-32); Mean Corpuscular Hgb Concent. 31.5 g/dl (32-36); Mean Platelet Volume 10.7 fl (7.5-11.0); Platelet Count 147 K/mm3 (150-450); Red Blood Count 4.63 M/mm3 (4.1-5.6); Red Cell Distribution Width 17.8 % (11.5-14.0); White Blood Count 6.8 K/mm3 (4.0-10.5)
[2020-08-21] MEDS: solu-MEDROL 125 MG IV SCH ×3 (06:12→17:56)
[2020-08-21] MEDS: Sodium Chloride 0.9% 500 ML 500 ML IV SCH (06:13)
[2020-08-21 06:15] LABS: ALBUMIN 2.7 g/dL (3.5-5.0); ALKALINE PHOSPHATASE 69 U/L (38-126); ANION GAP 9.3 MEQ/L (5-15); BLOOD UREA NITROGEN 40 mg/dL (9-20); CHLORIDE 109 mmol/L (98-107); Calcium 7.8 mg/dL (8.4-10.2); Carbon Dioxide 24 mmol/L (22-30); Creatinine 1 1.06 mg/dL (0.66-1.25); EST GLOMERULAR FILTRATION RATE > 60.0 ML/MIN; Glucose 152 mg/dL (74-106); Potassium 4.4 mmol/L (3.5-5.1); SGOT/AST 44 U/L (17-59); SGPT/ALT 105 U/L (0-50); SODIUM 137 mmol/L (137-145); Total Protein 5.4 g/dL (6.3-8.2)
[2020-08-21 07:07] LABS: INR 3.21 (0.8-3.0); PROTIME 36.7 SECONDS (8.83-12.87)
--- NOTE | 2020-08-21 08:05 | CONS ---
CONSULT DATE: 08/20/2020 HISTORY: Francis Milligan is a 79 year old man known to me for the last several years, who has been sick for over a week. The patient was seen twice in the [facility] and was discharged home after receiving one unit of Remdesivir therapy. He however got progressively more short of breath and returned to the emergency room and has now been hospitalized. His chest x-ray had shown viral pneumonia with interstitial involvement. The patient has been requiring high flow oxygen at 100% FIO2 at 55 liters. He is unable to tolerate noninvasive ventilation. He does appear tachypneic at rest. PAST MEDICAL HISTORY: Positive for history of hypercoag state. History of Kyung's syndrome. He was recently diagnosed of having colonic mass which will eventually require work up should he fortunately pull out of the current episode of COVID. He has been on chronic anticoagulation, has history of prostatic enlargement and hyperlipidemia. PAST SURGICAL HISTORY: No recent surgery. He had previous surgeries with Dr. Millan. MEDICATIONS: Medications reviewed. ALLERGIES: METOPROLOL. RAMIPRIL. PHYSICAL EXAMINATION: This is an elderly male who appears tachypneic. Vital signs noted. HEENT: Normocephalic. Oral exam unremarkable. Oral mucosa appears dry. NECK: Supple. Accessory muscles are prominent. CVS: First and second heart sounds are normal, regular, rhythmic. RESPIRATORY: Shows diminished breath sounds. Bilateral posterior crackles are heard which are one-third to one-half way up bilaterally. ABDOMEN: Soft. EXTREMITIES: No significant edema is noted. LABORATORY DATA AND TESTS: I have reviewed labs, x-rays and medications. ASSESSMENT: This is a 79 year old male admitted with: 1) Acute hypoxic respiratory failure. 2) COVID-19 infection. 3) Viral pneumonitis. 4) Anticoagulation with coagulopathy. Coumadin has been put on hold. 5) Comorbidities listed above. RECOMMENDATIONS: 1) Continue high flow oxygen at current settings keeping saturations at least at or above 88%. 2) Continue and complete Remdesivir therapy. 3) The patient will benefit from convalescent plasma, will transfuse 2 units of the same at the earliest possible time after type and cross match is achieved. 4) Will change steroids to high dose IV and discontinue Decadron. Recommend Solu-Medrol 60 mg IV every six hours. 5) I agree with other treatment. He needs close monitoring. The patient's pulmonary status is marginal at best and any further decompensation may lead to mechanical ventilation. I will be available as needed and will continue to follow with the patient. Thank you for allowing me to participate in the care of Francis Milligan.
[2020-08-21] MEDS: CLARITIN 10 MG PO SCH (10:39)
[2020-08-21] MEDS: Flomax 0.4 MG PO SCH (10:39)
[2020-08-21] MEDS: Pepcid 20 MG VIAL IV SCH ×2 (10:39→21:34)
[2020-08-21] MEDS: Coreg 6.25 MG PO SCH ×2 (10:39→21:34)
[2020-08-21] MEDS: Proscar 5 MG PO SCH (10:40)
[2020-08-21] MEDS: REMDESIVIR 100 MG in Sodium Chloride 0.9% 100 ML IVPB 100 ML IV SCH (10:42)
[2020-08-21] MEDS: ZOCOR 20MG PO SCH (10:42)
[2020-08-21] MEDS: Protonix 40MG Tablet PO SCH (10:44)
--- NOTE | 2020-08-21 15:21 | PROG NOTE ---
CONSULT DATE: 08/21/2020 Events noted. HISTORY: The patient was evaluated yesterday for hypoxic respiratory failure secondary to COVID-19. He got treated with plasma. He is starting his second unit. In addition, his steroids were changed to Solu-Medrol. The patient today feels better. He is able to maintain oxygen saturation at 98%. Cough has improved as well. PHYSICAL EXAMINATION: Vital signs noted. HEENT: Normocephalic. Oral exam is limited. NECK: Supple. CVS: First and second heart sounds are normal, regular, rhythmic. RESPIRATORY: Shows diminished breath sounds, crackles have significantly improved. ABDOMEN: Soft. EXTREMITIES: No edema is noted. LABORATORY DATA AND TESTS: Labs reviewed. ASSESSMENT: This is a patient admitted with:1) Acute hypoxic respiratory failure. 2) COVID-19 infection. 3) Viral pneumonia. 4) History of Kyung's syndrome. RECOMMENDATIONS: 1) The patient appears to have marginally improved in the past 24 hours. 2) Complete convalescent plasma infusion. 3) Continue high dose steroids for now with other supportive care. I will continue to follow.
[2020-08-21] MEDS: Coumadin 1 MG PO SCH (17:55)
[2020-08-21] MEDS: Ativan 2 MG/1 ML VIAL IV PRN (21:34)
[2020-08-21] MEDS: DOXEPIN HCL PO SCH (21:34)
[2020-08-22 02:34] LABS: A-aADO2 620; ABG HEMOGLOBIN 12.9; ABG POTASSIUM 3.9 (3.5-5.1); ABG SITE LEFT BRACHIAL; ARTERIAL BLD GAS O2 SATURATION 85.8 % (95-100); ARTERIAL BLOOD GAS BASE EXCESS -0.5 (-2.0-2.0); ARTERIAL BLOOD GAS FIO2 100 %; ARTERIAL BLOOD GAS PCO2 34 mmHg (35-45); ARTERIAL BLOOD GAS PO2 51 mmHg (75-100); ARTERIAL BLOOD GAS pH 7.44 (7.35-7.45); CARBOXYHEMOGLOBIN 1.3 % THgb (0.0-6.9); HCO3- 23.1 (22-28); HGB O2 SAT 84.3 g/dF (94-100); Methhemoglobin 0.5 % (1.4-1.5); paO2 pAO1 0.08
[2020-08-22] MEDS: solu-MEDROL 125 MG IV SCH ×5 (04:42→23:07)
[2020-08-22 05:45] LABS: ALBUMIN 2.7 g/dL (3.5-5.0); ALKALINE PHOSPHATASE 65 U/L (38-126); ANION GAP 8.8 MEQ/L (5-15); BLOOD UREA NITROGEN 43 mg/dL (9-20); CHLORIDE 111 mmol/L (98-107); Calcium 7.8 mg/dL (8.4-10.2); Carbon Dioxide 24 mmol/L (22-30); Creatinine 1 1.07 mg/dL (0.66-1.25); EST GLOMERULAR FILTRATION RATE > 60.0 ML/MIN; Glucose 149 mg/dL (74-106); SGOT/AST 37 U/L (17-59); SGPT/ALT 82 U/L (0-50); SODIUM 140 mmol/L (137-145); Total Protein 5.4 g/dL (6.3-8.2)
[2020-08-22 05:49] LABS: INR 2.84 (0.8-3.0); PROTIME 32.4 SECONDS (8.83-12.87)
--- NOTE | 2020-08-22 08:45 | XRAY ---
Indication: Elevated d-dimer. Positive Covid 19. Comparison: August 18, 2020. Portable chest demonstrates developing subtle hazy bilateral groundglass airspace disease without consolidation/large effusion. Again chronic right hemidiaphragm elevation with right base atelectasis. Heart is not enlarged.
[2020-08-22 09:21] LABS: A-aADO2 615; ABG HEMOGLOBIN 13.1; ABG POTASSIUM 3.8 (3.5-5.1); ARTERIAL BLD GAS O2 SATURATION 89.9 % (95-100); ARTERIAL BLOOD GAS BASE EXCESS -0.5 (-2.0-2.0); ARTERIAL BLOOD GAS FIO2 100 %; ARTERIAL BLOOD GAS PCO2 34 mmHg (35-45); ARTERIAL BLOOD GAS PO2 56 mmHg (75-100); ARTERIAL BLOOD GAS pH 7.44 (7.35-7.45); CARBOXYHEMOGLOBIN 1.3 % THgb (0.0-6.9); HCO3- 23.1 (22-28); HGB O2 SAT 88.1 g/dF (94-100); Methhemoglobin 0.7 % (1.4-1.5); paO2 pAO1 0.08
[2020-08-22 09:22] LABS: ABG SITE lr; ALLEN TEST OK? yes
[2020-08-22] MEDS ORDERED: SODIUM CHLORIDE 0.9% IV ONE (10:00)
[2020-08-22] MEDS ORDERED: PHENERGAN IV ONE (10:00)
[2020-08-22] MEDS ORDERED: SODIUM CHLORIDE 0.9% IV PRN ×2 (10:12→16:00)
[2020-08-22] MEDS ORDERED: PHENERGAN IV PRN ×2 (10:12→16:00)
[2020-08-22] MEDS ORDERED: BUMEX 1 MG IV ONE (10:21)
[2020-08-22] MEDS: REMDESIVIR 100 MG in Sodium Chloride 0.9% 100 ML IVPB 100 ML IV SCH (11:09)
[2020-08-22 11:47] LABS: A-aADO2 587; ABG HEMOGLOBIN 12.7; ARTERIAL BLD GAS O2 SATURATION 97.5 % (95-100); ARTERIAL BLOOD GAS BASE EXCESS 0.8 (-2.0-2.0); ARTERIAL BLOOD GAS FIO2 100 %; ARTERIAL BLOOD GAS PCO2 34 mmHg (35-45); ARTERIAL BLOOD GAS PO2 84 mmHg (75-100); ARTERIAL BLOOD GAS pH 7.46 (7.35-7.45); HCO3- 24.2 (22-28); HGB O2 SAT 95.7 g/dF (94-100); Methhemoglobin 0.8 % (1.4-1.5); paO2 pAO1 0.13
[2020-08-22 11:48] LABS: ARTERIAL BLD GAS TIDAL VOLUME 500 cc
[2020-08-22 11:49] LABS: ABG SITE LEFT BRACHIAL
[2020-08-22 11:50] LABS: ARTERIAL BLOOD GAS VENT MODE NIV/AVAPS; ARTERIAL BLOOD GAS VENT RATE 16 /MIN
[2020-08-22] MEDS: CLARITIN 10 MG PO SCH (12:53)
[2020-08-22] MEDS: Protonix 40MG Tablet PO SCH (12:54)
[2020-08-22] MEDS: Coreg 6.25 MG PO SCH ×2 (12:54→23:08)
[2020-08-22] MEDS: Proscar 5 MG PO SCH (12:54)
[2020-08-22] MEDS: Flomax 0.4 MG PO SCH (12:54)
[2020-08-22] MEDS: ZOCOR 20MG PO SCH (12:55)
[2020-08-22] MEDS: Pepcid 20 MG VIAL IV SCH ×2 (13:38→23:08)
[2020-08-22 15:58] LABS: A-aADO2 579; ABG HEMOGLOBIN 13.2; ABG POTASSIUM 3.9 (3.5-5.1); ARTERIAL BLD GAS O2 SATURATION 98.7 % (95-100); ARTERIAL BLOOD GAS BASE EXCESS 2.2 (-2.0-2.0); ARTERIAL BLOOD GAS FIO2 100 %; ARTERIAL BLOOD GAS PCO2 33 mmHg (35-45); ARTERIAL BLOOD GAS PO2 93 mmHg (75-100); ARTERIAL BLOOD GAS pH 7.49 (7.35-7.45); CARBOXYHEMOGLOBIN 1.5 % THgb (0.0-6.9); HCO3- 25.1 (22-28); HGB O2 SAT 96.6 g/dF (94-100); Methhemoglobin 0.6 % (1.4-1.5); paO2 pAO1 0.14
[2020-08-22 15:59] LABS: ABG SITE RIGHT BRACHIAL; ARTERIAL BLD GAS TIDAL VOLUME 500 cc; ARTERIAL BLOOD GAS VENT MODE NIV-AVAP; ARTERIAL BLOOD GAS VENT RATE 16 /MIN
[2020-08-22] MEDS: Coumadin 1 MG PO SCH (18:05)
[2020-08-22] MEDS: DOXEPIN HCL PO SCH (23:08)
[2020-08-23 06:29] LABS: Hematocrit 43.4 % (42-50); Hemoglobin 13.5 gm/dl (12.5-18.0); Mean Cell Volume 87.1 fl (78-100); Mean Corpuscular Hemoglobin 27.1 pg (26-32); Mean Corpuscular Hgb Concent. 31.1 g/dl (32-36); Platelet Count 123 K/mm3 (150-450); Red Blood Count 4.98 M/mm3 (4.1-5.6); Red Cell Distribution Width 18.2 % (11.5-14.0); White Blood Count 9.4 K/mm3 (4.0-10.5)
[2020-08-23 06:46] LABS: ALBUMIN 2.9 g/dL (3.5-5.0); ANION GAP 9.7 MEQ/L (5-15); BILIRUBIN,TOTAL 0.7 mg/dL (0.2-1.3); Calcium 7.8 mg/dL (8.4-10.2); Creatinine 1 1.27 mg/dL (0.66-1.25); EST GLOMERULAR FILTRATION RATE 58.4 ML/MIN; Potassium 4.3 mmol/L (3.5-5.1); Total Protein 5.8 g/dL (6.3-8.2)
[2020-08-23 06:53] LABS: INR 3.78 (0.8-3.0); PROTIME 43.3 SECONDS (8.83-12.87)
--- NOTE | 2020-08-23 09:04 | XRAY ---
Indication: Positive Covid 19. Comparison: One day earlier. Portable chest unchanged again demonstrating bilateral hazy groundglass airspace disease, right hemidiaphragm elevation, and right base subsegmental atelectasis. Heart is not enlarged. No new cardiopulmonary abnormalities.
[2020-08-23] MEDS: solu-MEDROL 125 MG IV SCH ×4 (09:32→22:49)
[2020-08-23] MEDS: Coreg 6.25 MG PO SCH ×2 (09:33→22:48)
[2020-08-23] MEDS: Sodium Chloride 0.9% 1000 ML 1,000 ML IV SCH (09:33)
[2020-08-23] MEDS: CLARITIN 10 MG PO SCH (09:33)
[2020-08-23] MEDS: Proscar 5 MG PO SCH (09:33)
[2020-08-23] MEDS: ZOCOR 20MG PO SCH (09:33)
[2020-08-23] MEDS: Flomax 0.4 MG PO SCH (09:33)
[2020-08-23] MEDS: Pepcid 20 MG VIAL IV SCH ×2 (09:34→22:49)
[2020-08-23] MEDS: Protonix 40MG Tablet PO SCH (09:34)
[2020-08-23 09:44] LABS: A-aADO2 597; ARTERIAL BLD GAS O2 SATURATION 95 % (95-100); ARTERIAL BLOOD GAS PCO2 36 mmHg (35-45); ARTERIAL BLOOD GAS PO2 71 mmHg (75-100); ARTERIAL BLOOD GAS pH 7.46 (7.35-7.45); CARBON DIOXIDE 27 mEq/L (23-27); HCO3- 25.6 (22-28); paO2 pAO1 0.11
[2020-08-23 09:45] LABS: ABG HEMOGLOBIN 13.4; ABG POTASSIUM 3.9 (3.5-5.1); ARTERIAL BLOOD GAS FIO2 100 %; ARTERIAL BLOOD GAS VENT RATE 16 /MIN; CARBOXYHEMOGLOBIN 1.1 % THgb (0.0-6.9); HGB O2 SAT 95 g/dF (94-100); Methhemoglobin 0.7 % (1.4-1.5)
[2020-08-23 09:46] LABS: ABG SITE LEFT RADIAL; ALLEN TEST OK? YES
[2020-08-23 09:47] LABS: ARTERIAL BLD GAS TIDAL VOLUME 500 cc; O2 CONTENT 93 % vol
[2020-08-23] MEDS: REMDESIVIR 100 MG in Sodium Chloride 0.9% 100 ML IVPB 100 ML IV SCH (10:48)
[2020-08-23] MEDS: DOXEPIN HCL PO SCH (22:48)
[2020-08-24 06:52] LABS: BASOPHIL % 0.1 % (0.0-0.4); Basophil (Absolute #) 0.01 (0-0.4); Eosinophil (Absolute #) 0 (0-0.5); Hematocrit 41.2 % (42-50); Hemoglobin 12.8 gm/dl (12.5-18.0); Lymphocyte (Absolute #) 0.21 (1.0-4.6); Lymphocytes % 2.3 % (24.0-44.0); Mean Cell Volume 87.1 fl (78-100); Mean Corpuscular Hemoglobin 27.1 pg (26-32); Mean Corpuscular Hgb Concent. 31.1 g/dl (32-36); Mean Platelet Volume 10.7 fl (7.5-11.0); Monocyte (Absolute #) 0.18 (0.0-1.3); Neutrophil % 95.6 % (36.0-66.0); Platelet Count 84 K/mm3 (150-450); Red Blood Count 4.73 M/mm3 (4.1-5.6); Red Cell Distribution Width 18.2 % (11.5-14.0)
[2020-08-24 07:26] LABS: ALBUMIN 2.5 g/dL (3.5-5.0); ALKALINE PHOSPHATASE 63 U/L (38-126); ANION GAP 9.4 MEQ/L (5-15); BLOOD UREA NITROGEN 56 mg/dL (9-20); CHLORIDE 111 mmol/L (98-107); Calcium 7.4 mg/dL (8.4-10.2); Carbon Dioxide 24 mmol/L (22-30); Creatinine 1 1.16 mg/dL (0.66-1.25); EST GLOMERULAR FILTRATION RATE > 60.0 ML/MIN; Glucose 153 mg/dL (74-106); Potassium 4.4 mmol/L (3.5-5.1); SGOT/AST 28 U/L (17-59); SGPT/ALT 64 U/L (0-50); SODIUM 140 mmol/L (137-145); Total Protein 5.2 g/dL (6.3-8.2)
[2020-08-24] MEDS: Sodium Chloride 0.9% 1000 ML 1,000 ML IV SCH (07:58)
[2020-08-24] MEDS: solu-MEDROL 125 MG IV SCH ×4 (08:02→21:37)
[2020-08-24 09:47] LABS: Slide Review 1 YES
[2020-08-24] MEDS: Flomax 0.4 MG PO SCH (10:01)
[2020-08-24] MEDS: Protonix 40MG Tablet PO SCH (10:01)
[2020-08-24] MEDS: Proscar 5 MG PO SCH (10:02)
[2020-08-24] MEDS: CLARITIN 10 MG PO SCH (10:02)
[2020-08-24] MEDS: ZOCOR 20MG PO SCH (10:03)
[2020-08-24] MEDS: Coreg 6.25 MG PO SCH ×2 (10:03→21:37)
[2020-08-24] MEDS: Pepcid 20 MG VIAL IV SCH ×2 (10:11→21:37)
[2020-08-24] MEDS ORDERED: Hydromorphone 1 mg/ml Injection IV PRN ×3 (12:50→14:00)
[2020-08-24] MEDS ORDERED: Phenergan 25 MG INJ IV PRN (15:36)
[2020-08-24] MEDS: CHLORASEPTIC SPRAY 180 ML PO PRN (15:44)
[2020-08-24] MEDS ORDERED: Coumadin 1 MG PO SCH (18:00)
[2020-08-24] MEDS: DOXEPIN HCL PO SCH (21:36)
[2020-08-24] MEDS: Ativan 2 MG/1 ML VIAL IV PRN (21:37)
[2020-08-25] MEDS: Sodium Chloride 0.9% 1000 ML 1,000 ML IV SCH ×2 (05:27→21:13)
[2020-08-25 05:47] LABS: Hematocrit 39.7 % (42-50); Hemoglobin 12.4 gm/dl (12.5-18.0); Mean Cell Volume 87.1 fl (78-100); Mean Corpuscular Hemoglobin 27.2 pg (26-32); Mean Corpuscular Hgb Concent. 31.2 g/dl (32-36); Mean Platelet Volume 12.4 fl (7.5-11.0); Platelet Count 77 K/mm3 (150-450); Red Blood Count 4.56 M/mm3 (4.1-5.6); Red Cell Distribution Width 17.8 % (11.5-14.0); White Blood Count 10.5 K/mm3 (4.0-10.5)
[2020-08-25 06:00] LABS: ALBUMIN 2.2 g/dL (3.5-5.0); ALKALINE PHOSPHATASE 56 U/L (38-126); ANION GAP 4.5 MEQ/L (5-15); BLOOD UREA NITROGEN 50 mg/dL (9-20); CHLORIDE 111 mmol/L (98-107); Calcium 7.1 mg/dL (8.4-10.2); Carbon Dioxide 28 mmol/L (22-30); EST GLOMERULAR FILTRATION RATE > 60.0 ML/MIN; Glucose 144 mg/dL (74-106); PROTIME 67.8 SECONDS (8.83-12.87); Potassium 4.1 mmol/L (3.5-5.1); SGOT/AST 27 U/L (17-59); SGPT/ALT 49 U/L (0-50); SODIUM 140 mmol/L (137-145); Total Protein 4.8 g/dL (6.3-8.2)
[2020-08-25 06:10] LABS: INR 5.85 (0.8-3.0)
[2020-08-25] MEDS ORDERED: Vitamin K 1 MG IM ONE (06:49)
[2020-08-25] MEDS ORDERED: Vitamin K 10 MG/ML ONE (06:56)
[2020-08-25] MEDS: CLARITIN 10 MG PO SCH (07:24)
[2020-08-25] MEDS: Protonix 40MG Tablet PO SCH (07:24)
[2020-08-25] MEDS: ZOCOR 20MG PO SCH (07:25)
[2020-08-25] MEDS: Flomax 0.4 MG PO SCH (07:25)
[2020-08-25] MEDS: Proscar 5 MG PO SCH (07:25)
[2020-08-25] MEDS: Pepcid 20 MG VIAL IV SCH ×2 (07:26→21:09)
[2020-08-25] MEDS: Coreg 6.25 MG PO SCH ×2 (07:33→21:10)
[2020-08-25] MEDS: solu-MEDROL 125 MG IV SCH ×4 (07:34→23:06)
[2020-08-25 08:37] LABS: Slide Review YES
--- NOTE | 2020-08-25 10:04 | PROG NOTE ---
CONSULT DATE: 08/23/2020 Events noted. Chart reviewed. I have had multiple discussions with nursing staff/respiratory therapy about Francis Milligan yesterday as well as this morning. The patient is back on BiPAP of 8. He is tired but not as labored. Vital signs noted. Maintaining saturations of 98%. PHYSICAL EXAMINATION: HEENT: Normocephalic. BiPAP mask is in place. CVS: First and second heart sounds are normal, regular, rhythmic. RESPIRATORY: Shows diminished breath sounds, crackles have improved. ABDOMEN: Soft. EXTREMITIES: No edema is noted. LABORATORY DATA AND TESTS: White count 9.4, hemoglobin 13.5, hematocrit 43, PLT 123,000. D-dimer is 75,404. BUN 52, creatinine 1.2. ABG reviewed. ASSESSMENT: This is a 79 year old male admitted with: 1) Acute hypoxic respiratory failure. 2) COVID-19 positive. 3) Viral pneumonia from COVID-19. 4) Acute renal insufficiency likely inadequate oral intake. 5) Severe increase in serum D-dimer likely as a marker of inflammation and coagulopathy second to COVID. RECOMMENDATIONS: 1) Continue noninvasive ventilation. 2) Continue steroids. 3) The patient is on anticoagulation with INR of 3.5 which would certainly cover positive D-dimer. 4) Continue other supportive care. The patient has been started on low dose IV fluids, monitor labs and saturation closely. Prognosis remains guarded.
[2020-08-25] MEDS: ATARAX 25 MG PO PRN (10:37)
[2020-08-25] MEDS ORDERED: Valium 5 MG PO PRN (17:30)
[2020-08-25 18:30] LABS: PROTIME 62.9 SECONDS (8.83-12.87)
[2020-08-25 18:34] LABS: INR 5.56 (0.8-3.0)
[2020-08-25] MEDS: DOXEPIN HCL PO SCH (21:10)
[2020-08-26] MEDS: solu-MEDROL 125 MG IV SCH ×4 (05:00→22:51)
[2020-08-26 05:30] LABS: Hematocrit 38.9 % (42-50); Hemoglobin 12.2 gm/dl (12.5-18.0); Mean Cell Volume 86.3 fl (78-100); Mean Corpuscular Hemoglobin 27.1 pg (26-32); Mean Corpuscular Hgb Concent. 31.4 g/dl (32-36); Mean Platelet Volume 10.2 fl (7.5-11.0); Platelet Count 60 K/mm3 (150-450); Red Blood Count 4.51 M/mm3 (4.1-5.6); Red Cell Distribution Width 17.6 % (11.5-14.0); White Blood Count 11.6 K/mm3 (4.0-10.5)
[2020-08-26 05:50] LABS: INR 3.83 (0.8-3.0); PROTIME 43.9 SECONDS (8.83-12.87)
[2020-08-26 06:09] LABS: ALBUMIN 2.1 g/dL (3.5-5.0); ALKALINE PHOSPHATASE 60 U/L (38-126); ANION GAP 6.4 MEQ/L (5-15); BLOOD UREA NITROGEN 43 mg/dL (9-20); CHLORIDE 114 mmol/L (98-107); Calcium 7.1 mg/dL (8.4-10.2); Carbon Dioxide 25 mmol/L (22-30); Creatinine 1 0.98 mg/dL (0.66-1.25); EST GLOMERULAR FILTRATION RATE > 60.0 ML/MIN; Glucose 137 mg/dL (74-106); Potassium 4.5 mmol/L (3.5-5.1); SGOT/AST 31 U/L (17-59); SGPT/ALT 45 U/L (0-50); SODIUM 141 mmol/L (137-145); Total Protein 4.5 g/dL (6.3-8.2)
[2020-08-26 06:47] LABS: Slide Review YES
[2020-08-26] MEDS: CLARITIN 10 MG PO SCH (07:50)
[2020-08-26] MEDS: Proscar 5 MG PO SCH (07:52)
[2020-08-26] MEDS: Protonix 40MG Tablet PO SCH (07:52)
[2020-08-26] MEDS: ZOCOR 20MG PO SCH (07:52)
[2020-08-26] MEDS: Flomax 0.4 MG PO SCH (07:52)
[2020-08-26] MEDS: Pepcid 20 MG VIAL IV SCH ×2 (09:25→20:42)
[2020-08-26] MEDS: Coreg 6.25 MG PO SCH ×2 (09:27→20:42)
[2020-08-26] MEDS: Sodium Chloride 0.9% 1000 ML 1,000 ML IV SCH (17:01)
[2020-08-26] MEDS: Sodium Chloride 0.9% 500 ML 500 ML IV SCH (20:03)
[2020-08-26] MEDS: DOXEPIN HCL PO SCH (20:42)
[2020-08-26] MEDS: ATARAX 25 MG PO PRN (22:51)
[2020-08-27] MEDS: CHLORASEPTIC SPRAY 180 ML PO PRN (01:00)
[2020-08-27 04:40] LABS: A-aADO2 623; ABG POTASSIUM 4.3 (3.5-5.1); ABG SITE RIGHT BRACHIAL; ARTERIAL BLD GAS O2 SATURATION 86.2 % (95-100); ARTERIAL BLOOD GAS BASE EXCESS 0.4 (-2.0-2.0); ARTERIAL BLOOD GAS FIO2 100 %; ARTERIAL BLOOD GAS PCO2 31 mmHg (35-45); ARTERIAL BLOOD GAS PO2 51 mmHg (75-100); ARTERIAL BLOOD GAS pH 7.48 (7.35-7.45); CARBOXYHEMOGLOBIN 1.8 % THgb (0.0-6.9); HCO3- 23.1 (22-28); HGB O2 SAT 84.2 g/dF (94-100); Methhemoglobin 0.5 % (1.4-1.5); paO2 pAO1 0.08
[2020-08-27] MEDS: solu-MEDROL 125 MG IV SCH ×3 (05:18→17:03)
[2020-08-27 05:23] LABS: Hematocrit 42.2 % (42-50); Hemoglobin 13.1 gm/dl (12.5-18.0); Mean Cell Volume 86.3 fl (78-100); Mean Corpuscular Hemoglobin 26.8 pg (26-32); Mean Platelet Volume 10.5 fl (7.5-11.0); Platelet Count 51 K/mm3 (150-450); Red Blood Count 4.89 M/mm3 (4.1-5.6); Red Cell Distribution Width 18.1 % (11.5-14.0); White Blood Count 13.6 K/mm3 (4.0-10.5)
[2020-08-27 05:35] LABS: ALBUMIN 2.1 g/dL (3.5-5.0); ALKALINE PHOSPHATASE 73 U/L (38-126); ANION GAP 5.5 MEQ/L (5-15); BLOOD UREA NITROGEN 43 mg/dL (9-20); CHLORIDE 114 mmol/L (98-107); Calcium 7.1 mg/dL (8.4-10.2); Carbon Dioxide 26 mmol/L (22-30); Creatinine 1 1.06 mg/dL (0.66-1.25); EST GLOMERULAR FILTRATION RATE > 60.0 ML/MIN; Glucose 131 mg/dL (74-106); Potassium 4.5 mmol/L (3.5-5.1); SGOT/AST 37 U/L (17-59); SGPT/ALT 42 U/L (0-50); SODIUM 140 mmol/L (137-145); Total Protein 4.6 g/dL (6.3-8.2)
[2020-08-27 05:43] LABS: INR 2.5 (0.8-3.0); PROTIME 28.5 SECONDS (8.83-12.87)
[2020-08-27] MEDS ORDERED: DUONEB 0.5-3 MG/3 ml Neb IH ONE ×4 (07:20→17:48)
[2020-08-27] MEDS: CLARITIN 10 MG PO SCH (07:55)
[2020-08-27] MEDS: Coreg 6.25 MG PO SCH ×2 (07:56→21:57)
[2020-08-27] MEDS: Flomax 0.4 MG PO SCH (07:56)
[2020-08-27] MEDS: ZOCOR 20MG PO SCH (07:56)
[2020-08-27] MEDS: Protonix 40MG Tablet PO SCH (07:56)
[2020-08-27] MEDS: Proscar 5 MG PO SCH (07:56)
[2020-08-27] MEDS: Sodium Chloride 0.9% 500 ML 500 ML IV SCH ×2 (08:11→08:14)
[2020-08-27] MEDS: Pepcid 20 MG VIAL IV SCH ×2 (10:17→21:56)
[2020-08-27] MEDS: ENOXAPARIN SODIUM SQ SCH ×2 (10:17→21:57)
[2020-08-27] MEDS: Levofloxacin 500MG/100ML D5W 500 MG/100 ML BAG IV SCH (10:17)
[2020-08-27] MEDS: Tussionex Pennkinetic Susp PO SCH ×2 (10:20→20:03)
[2020-08-27] MEDS ORDERED: VENTOLIN COMMON CANISTER IH PRN (11:37)
[2020-08-27] MEDS: VENTOLIN COMMON CANISTER IH SCH ×3 (11:49→22:10)
[2020-08-27] MEDS: Sodium Chloride 0.9% 1000 ML 1,000 ML IV SCH (11:57)
[2020-08-27] MEDS: Ativan 0.5 MG PO SCH ×2 (11:58→19:38)
[2020-08-27] MEDS: REMDESIVIR 100 MG in Sodium Chloride 0.9% 100 ML IVPB 100 ML IV SCH (11:58)
[2020-08-27] MEDS ORDERED: Ativan 1 MG PO PRN (21:54)
[2020-08-27] MEDS: DOXEPIN HCL PO SCH (21:57)
[2020-08-27] MEDS: ATARAX 25 MG PO PRN (22:01)
[2020-08-28] MEDS: solu-MEDROL 125 MG IV SCH ×4 (00:19→17:05)
[2020-08-28 02:44] LABS: BASOPHIL % 0.2 % (0.0-0.4); Basophil (Absolute #) 0.02 (0-0.4); Eosinophil (Absolute #) 0 (0-0.5); Hematocrit 42.2 % (42-50); Hemoglobin 13.1 gm/dl (12.5-18.0); Lymphocyte (Absolute #) 0.19 (1.0-4.6); Lymphocytes % 1.8 % (24.0-44.0); Mean Cell Volume 87.6 fl (78-100); Mean Corpuscular Hemoglobin 27.2 pg (26-32); Mean Platelet Volume 11.3 fl (7.5-11.0); Monocyte (Absolute #) 0.21 (0.0-1.3); Platelet Count 51 K/mm3 (150-450); Red Blood Count 4.82 M/mm3 (4.1-5.6); Red Cell Distribution Width 18.7 % (11.5-14.0); White Blood Count 10.7 K/mm3 (4.0-10.5)
[2020-08-28 02:51] LABS: INR 2.16 (0.8-3.0); PROTIME 24.6 SECONDS (8.83-12.87)
[2020-08-28 02:56] LABS: ALBUMIN 2.2 g/dL (3.5-5.0); ALKALINE PHOSPHATASE 78 U/L (38-126); ANION GAP 6.1 MEQ/L (5-15); BLOOD UREA NITROGEN 46 mg/dL (9-20); CHLORIDE 114 mmol/L (98-107); Calcium 7.2 mg/dL (8.4-10.2); Carbon Dioxide 25 mmol/L (22-30); EST GLOMERULAR FILTRATION RATE > 60.0 ML/MIN; Glucose 134 mg/dL (74-106); Potassium 4.6 mmol/L (3.5-5.1); SGOT/AST 37 U/L (17-59); SGPT/ALT 44 U/L (0-50); SODIUM 140 mmol/L (137-145); Total Protein 4.6 g/dL (6.3-8.2)
[2020-08-28 03:37] LABS: A-aADO2 602; ABG HEMOGLOBIN 13.2; ABG POTASSIUM 4.4 (3.5-5.1); ARTERIAL BLD GAS O2 SATURATION 94.3 % (95-100); ARTERIAL BLD GAS TIDAL VOLUME 500 cc; ARTERIAL BLOOD GAS BASE EXCESS -2.9 (-2.0-2.0); ARTERIAL BLOOD GAS FIO2 100 %; ARTERIAL BLOOD GAS PCO2 33 mmHg (35-45); ARTERIAL BLOOD GAS PO2 70 mmHg (75-100); ARTERIAL BLOOD GAS pH 7.41 (7.35-7.45); CARBOXYHEMOGLOBIN 1.3 % THgb (0.0-6.9); HCO3- 20.9 (22-28); HGB O2 SAT 92.1 g/dF (94-100)
[2020-08-28 03:38] LABS: ABG SITE RIGHT BRACHIAL; ARTERIAL BLOOD GAS VENT MODE AVAPS; ARTERIAL BLOOD GAS VENT RATE 16 /MIN
[2020-08-28] MEDS: ATARAX 25 MG PO PRN ×2 (04:39→20:52)
[2020-08-28] MEDS ORDERED: Ativan 1 MG PO PRN (06:15)
[2020-08-28] MEDS: Sodium Chloride 0.9% 1000 ML 1,000 ML IV SCH (06:21)
[2020-08-28] MEDS: VENTOLIN COMMON CANISTER IH SCH ×5 (08:40→20:35)
--- NOTE | 2020-08-28 09:23 | PROG NOTE ---
CONSULT DATE: 08/27/2020 Events noted. Chart reviewed. The case discussed with nursing staff as well as respiratory therapy. HISTORY: The patient has remained BiPAP dependent over the past several days. He was started on oral Ativan and morphine which has helped him calm down some. He used BiPAP all day today and was just taken off this evening. Currently on high flow. Able to talk. The patient's had a chance to visit him today and that has definitely helped him psychologically. PHYSICAL EXAMINATION: Vital signs noted. HEENT: Normocephalic. Oral exam unremarkable. NECK: Supple. CVS: First and second heart sounds are normal, regular, rhythmic. RESPIRATORY: Shows diminished breath sounds, crackles partially improved. ABDOMEN: Soft. EXTREMITIES: No edema. LABORATORY DATA AND TESTS: Labs were reviewed. ASSESSMENT: This is a 79 year old male admitted with: 1) Acute hypoxic respiratory failure. 2) Viral pneumonia from COVID-19. 3) Acute renal failure improved. 4) History of thromboembolism on anticoagulation. RECOMMENDATIONS: Continue present treatment. Advised the patient to alternate between high flow oxygen and noninvasive ventilation. The patient has not shown any significant clinical improvement and remains on 100% oxygen via noninvasive ventilation. Continue supportive care. Prognosis remains guarded to poor. He remains a Full Code. I will continue to follow.
[2020-08-28] MEDS: ENOXAPARIN SODIUM SQ SCH (09:39)
[2020-08-28] MEDS: Coreg 6.25 MG PO SCH ×2 (09:43→20:51)
[2020-08-28] MEDS: CLARITIN 10 MG PO SCH (09:44)
[2020-08-28] MEDS: Flomax 0.4 MG PO SCH (09:44)
[2020-08-28] MEDS: Proscar 5 MG PO SCH (09:45)
[2020-08-28] MEDS: ZOCOR 20MG PO SCH (09:45)
[2020-08-28] MEDS: Levofloxacin 500MG/100ML D5W 500 MG/100 ML BAG IV SCH (09:45)
[2020-08-28] MEDS: Pepcid 20 MG VIAL IV SCH ×2 (09:46→20:52)
[2020-08-28] MEDS: Protonix 40MG Tablet PO SCH (09:46)
[2020-08-28] MEDS: REMDESIVIR 100 MG in Sodium Chloride 0.9% 100 ML IVPB 100 ML IV SCH (12:57)
--- NOTE | 2020-08-28 13:01 | PROG NOTE ---
DATE: 08/28/2020 Events noted. The patient is currently resting comfortably on BiPAP with AVAPS mode. He is on 100% oxygen saturating 96%. Vital signs noted. PHYSICAL EXAMINATION: HEENT: Normocephalic. Oral exam is limited. BiPAP mask is in place. CVS: First and second heart sounds are normal, regular, rhythmic. RESPIRATORY: Shows diminished breath sounds. Posterior crackles heard. ABDOMEN: Soft. EXTREMITIES: No edema is noted. LABORATORY DATA AND TESTS: Labs reviewed. BUN 46, creatinine 1.1. White count 10.7. The pH 7.41, pCO2 33, pO2 of 70. ASSESSMENT: This is a 79 year old male admitted with: 1 Acute severe hypoxic respiratory failure. 2) COVID-19 infection. 3) Viral pneumonia from COVID-19. 4) Hypercoag state on anticoagulation. RECOMMENDATIONS: 1) The patient is still able to compensate for respiratory insufficiency. 2) Continue noninvasive ventilation alternating with high flow oxygen. 3) On anticoagulation with therapeutic INR. 4) I had a discussion with the patient's and explained to her regarding current condition, likely overall poor prognosis and plan of care. She verbalized her understanding.
[2020-08-28] MEDS: Tussionex Pennkinetic Susp PO SCH ×2 (13:41→20:52)
[2020-08-28] MEDS ORDERED: Coumadin 1 MG PO ONE (14:00)
[2020-08-28] MEDS: DOXEPIN HCL PO SCH (20:51)
[2020-08-29] MEDS: ATARAX 25 MG PO PRN ×6 (00:59→21:00)
[2020-08-29] MEDS: solu-MEDROL 125 MG IV SCH ×4 (00:59→17:56)
[2020-08-29] MEDS: Sodium Chloride 0.9% 1000 ML 1,000 ML IV SCH (03:04)
[2020-08-29 05:36] LABS: Hematocrit 41.9 % (42-50); Hemoglobin 12.8 gm/dl (12.5-18.0); Mean Corpuscular Hemoglobin 26.9 pg (26-32); Mean Corpuscular Hgb Concent. 30.5 g/dl (32-36); Platelet Count 55 K/mm3 (150-450); Red Blood Count 4.76 M/mm3 (4.1-5.6); Red Cell Distribution Width 18.7 % (11.5-14.0); White Blood Count 9.2 K/mm3 (4.0-10.5)
[2020-08-29 05:53] LABS: INR 2.21 (0.8-3.0); PROTIME 25.2 SECONDS (8.83-12.87)
[2020-08-29 06:21] LABS: ALBUMIN 2.2 g/dL (3.5-5.0); ALKALINE PHOSPHATASE 83 U/L (38-126); ANION GAP 6.3 MEQ/L (5-15); BLOOD UREA NITROGEN 42 mg/dL (9-20); CHLORIDE 115 mmol/L (98-107); Calcium 7.1 mg/dL (8.4-10.2); Carbon Dioxide 26 mmol/L (22-30); Creatinine 1 1.01 mg/dL (0.66-1.25); EST GLOMERULAR FILTRATION RATE > 60.0 ML/MIN; Glucose 121 mg/dL (74-106); Potassium 4.4 mmol/L (3.5-5.1); SGOT/AST 34 U/L (17-59); SGPT/ALT 41 U/L (0-50); SODIUM 143 mmol/L (137-145); Total Protein 4.6 g/dL (6.3-8.2)
[2020-08-29 06:47] LABS: Slide Review YES
[2020-08-29] MEDS: VENTOLIN COMMON CANISTER IH SCH ×4 (07:10→19:20)
[2020-08-29] MEDS: CLARITIN 10 MG PO SCH (08:00)
[2020-08-29] MEDS: Proscar 5 MG PO SCH (08:04)
[2020-08-29] MEDS: Flomax 0.4 MG PO SCH (08:17)
[2020-08-29] MEDS: Protonix 40MG Tablet PO SCH (08:17)
[2020-08-29] MEDS: ZOCOR 20MG PO SCH (08:17)
[2020-08-29] MEDS: Coreg 6.25 MG PO SCH ×2 (08:17→20:55)
[2020-08-29] MEDS: Levofloxacin 500MG/100ML D5W 500 MG/100 ML BAG IV SCH (09:27)
[2020-08-29] MEDS: Tussionex Pennkinetic Susp PO SCH ×2 (09:28→20:13)
[2020-08-29] MEDS: Pepcid 20 MG VIAL IV SCH ×2 (09:28→20:59)
--- NOTE | 2020-08-29 09:57 | PROG NOTE ---
HISTORY: The patient is on high flow oxygen assisted with BiPAP. The BiPAP is on 8. O2 saturations with this device is in the 90's. When we take it off it goes in the 60's. He is much more alert than he was two days ago. He is in less distress. He is still anxious and having some distress and apparently he slept well last night and was resting well yesterday. He is afebrile. He is in critical pulmonary situation. Dr. Juvenal Rubalcava is following him with us. He advised to continue the same situation, to avoid intubation unless we cannot keep his O2's in the 70's. Continue low dose fluids. His chest decreased breath sounds, some crackles bilateral. Abdomen soft. Heart rate is distant and single. Pulse is 70. Temperature is down. IMPRESSION: Bilateral COVID pneumonia. The patient is stable. His platelets appear decreased so his anticoagulation is being changed somewhat. He has a history of deep venous thrombosis before besides having D-dimer of like 70,000 a day ago. PROGNOSIS: Guarded with slight improvement.
[2020-08-29] MEDS: REMDESIVIR 100 MG in Sodium Chloride 0.9% 100 ML IVPB 100 ML IV SCH (12:30)
[2020-08-29] MEDS ORDERED: Coumadin 1 MG PO SCH (18:00)
[2020-08-29] MEDS: Tessalon Perles 100 MG PO PRN (20:30)
[2020-08-29] MEDS: DOXEPIN HCL PO SCH (21:00)
[2020-08-30] MEDS: solu-MEDROL 125 MG IV SCH ×4 (00:11→17:50)
[2020-08-30] MEDS: Sodium Chloride 0.9% 1000 ML 1,000 ML IV SCH ×2 (00:24→21:19)
[2020-08-30] MEDS: Tessalon Perles 100 MG PO PRN ×3 (01:38→22:50)
[2020-08-30] MEDS ORDERED: PROVENTIL 2.5 MG/3 ML NEB IH ONE (03:11)
[2020-08-30] MEDS: ATARAX 25 MG PO PRN ×3 (03:14→22:48)
[2020-08-30] MEDS: VENTOLIN COMMON CANISTER IH SCH ×4 (07:30→19:08)
[2020-08-30 08:12] LABS: Hematocrit 43.7 % (42-50); Hemoglobin 13.7 gm/dl (12.5-18.0); Mean Cell Volume 86.5 fl (78-100); Mean Corpuscular Hemoglobin 27.1 pg (26-32); Mean Corpuscular Hgb Concent. 31.4 g/dl (32-36); Platelet Count 42 K/mm3 (150-450); Red Blood Count 5.05 M/mm3 (4.1-5.6); Red Cell Distribution Width 18.9 % (11.5-14.0); White Blood Count 13.5 K/mm3 (4.0-10.5)
[2020-08-30 08:29] LABS: ANION GAP 8.3 MEQ/L (5-15); Potassium 4.7 mmol/L (3.5-5.1)
[2020-08-30 08:49] LABS: INR 3.1 (0.8-3.0); PROTIME 35.4 SECONDS (8.83-12.87)
[2020-08-30 08:54] LABS: Slide Review YES
[2020-08-30] MEDS: ZOCOR 20MG PO SCH (09:05)
[2020-08-30] MEDS: Flomax 0.4 MG PO SCH (09:05)
[2020-08-30] MEDS: Coreg 6.25 MG PO SCH ×2 (09:05→20:10)
[2020-08-30] MEDS: CLARITIN 10 MG PO SCH (09:06)
[2020-08-30] MEDS: Proscar 5 MG PO SCH (09:06)
[2020-08-30] MEDS: Protonix 40MG Tablet PO SCH (09:06)
[2020-08-30] MEDS: Tussionex Pennkinetic Susp PO SCH ×2 (09:08→20:55)
[2020-08-30] MEDS ORDERED: Valium 5 MG PO ONE (09:48)
[2020-08-30] MEDS: DUONEB 0.5-3 MG/3 ml Neb IH PRN ×2 (10:00→19:20)
[2020-08-30] MEDS: Pepcid 20 MG VIAL IV SCH ×2 (10:01→22:48)
[2020-08-30] MEDS: Levofloxacin 500MG/100ML D5W 500 MG/100 ML BAG IV SCH (10:02)
[2020-08-30] MEDS ORDERED: Valium 5 MG PO PRN (11:32)
[2020-08-30] MEDS: MORPHINE SULFATE 2 MG INJ IV PRN ×2 (11:46→17:55)
[2020-08-30] MEDS: REMDESIVIR 100 MG in Sodium Chloride 0.9% 100 ML IVPB 100 ML IV SCH (13:25)
[2020-08-30] MEDS: DOXEPIN HCL PO SCH (20:55)
[2020-08-31] MEDS: solu-MEDROL 125 MG IV SCH ×4 (00:29→18:15)
[2020-08-31] MEDS: MORPHINE SULFATE 2 MG INJ IV PRN ×4 (01:50→12:47)
[2020-08-31] MEDS: Tessalon Perles 100 MG PO PRN ×2 (04:03→07:55)
[2020-08-31] MEDS: ATARAX 25 MG PO PRN (07:55)
[2020-08-31 08:21] LABS: Hematocrit 46.1 % (42-50); Hemoglobin 14.4 gm/dl (12.5-18.0); Mean Cell Volume 87.1 fl (78-100); Mean Corpuscular Hemoglobin 27.2 pg (26-32); Mean Corpuscular Hgb Concent. 31.2 g/dl (32-36); Platelet Count 40 K/mm3 (150-450); Red Blood Count 5.29 M/mm3 (4.1-5.6); Red Cell Distribution Width 19.6 % (11.5-14.0)
[2020-08-31] MEDS: Protonix 40MG Tablet PO SCH (08:25)
[2020-08-31] MEDS: Coreg 6.25 MG PO SCH ×2 (08:25→21:35)
[2020-08-31] MEDS: Proscar 5 MG PO SCH (08:26)
[2020-08-31] MEDS: Flomax 0.4 MG PO SCH (08:26)
[2020-08-31] MEDS: ZOCOR 20MG PO SCH (08:26)
[2020-08-31] MEDS: CLARITIN 10 MG PO SCH (08:27)
[2020-08-31] MEDS: VENTOLIN COMMON CANISTER IH SCH ×4 (09:07→19:40)
[2020-08-31] MEDS: Pepcid 20 MG VIAL IV SCH ×3 (09:35→21:45)
[2020-08-31] MEDS: Tussionex Pennkinetic Susp PO SCH ×2 (09:35→21:45)
[2020-08-31] MEDS: Levofloxacin 500MG/100ML D5W 500 MG/100 ML BAG IV SCH (09:35)
[2020-08-31 09:52] LABS: ALBUMIN 2.2 g/dL (3.5-5.0); ALKALINE PHOSPHATASE 110 U/L (38-126); ANION GAP 9.3 MEQ/L (5-15); BLOOD UREA NITROGEN 53 mg/dL (9-20); CHLORIDE 121 mmol/L (98-107); Calcium 7.4 mg/dL (8.4-10.2); Carbon Dioxide 18 mmol/L (22-30); Creatinine 1 1.13 mg/dL (0.66-1.25); EST GLOMERULAR FILTRATION RATE > 60.0 ML/MIN; Glucose 127 mg/dL (74-106); Potassium 4.8 mmol/L (3.5-5.1); SGOT/AST 41 U/L (17-59); SGPT/ALT 47 U/L (0-50); SODIUM 143 mmol/L (137-145); Total Protein 4.6 g/dL (6.3-8.2)
[2020-08-31 10:14] LABS: Slide Review YES
[2020-08-31] MEDS ORDERED: Valium 5 MG PO PRN (10:30)
[2020-08-31] MEDS ORDERED: Zithromax 250 MG TABLET PO SCH (12:00)
[2020-08-31] MEDS: ROCEPHIN 1 Gm-D5w 50 ml Bag** 1 G/50 ML IVPB IV SCH (12:02)
[2020-08-31 13:55] LABS: Appearance CLOUDY (CLEAR); Bilirubin NEGATIVE (NEGATIVE); Blood LARGE Ery/ul (0-5); Glucose >=500 mg/dL (NEGATIVE); Ketones NEGATIVE (NEGATIVE); Leukocyte Esterase NEGATIVE (NEGATIVE); Mucus SLIGHT /HPF (NEGATIVE); Nitrite NEGATIVE (NEGATIVE); Protein,Urine Dip 100 (Negative); Specific Gravity 1.022 (1.005-1.025); Urobilinogen NEGATIVE mg/dL (0-1)
[2020-08-31 13:58] LABS: RBC >101 /HPF (0-2)
[2020-08-31] MEDS: REMDESIVIR 100 MG in Sodium Chloride 0.9% 100 ML IVPB 100 ML IV SCH (14:30)
[2020-08-31] MEDS ORDERED: Versed 50 MG/ 10 Ml MDV ONE (15:52)
[2020-08-31] MEDS ORDERED: Sodium Chloride 0.9% 250 ML 250 ML IV ONE (15:52)
[2020-08-31] MEDS: Versed 50 MG/ 10 Ml MDV*** 50 MG in Sodium Chloride 0.9% 250 ML 240 ML IV PRN (16:01)
[2020-08-31 16:38] LABS: A-aADO2 620; ABG HEMOGLOBIN 14.8; ABG POTASSIUM 4.7 (3.5-5.1); ABG SITE LEFT BRACHIAL; ARTERIAL BLD GAS O2 SATURATION 87.2 % (95-100); ARTERIAL BLOOD GAS BASE EXCESS -5.1 (-2.0-2.0); ARTERIAL BLOOD GAS FIO2 100 %; ARTERIAL BLOOD GAS PCO2 31 mmHg (35-45); ARTERIAL BLOOD GAS PO2 54 mmHg (75-100); ARTERIAL BLOOD GAS pH 7.39 (7.35-7.45); CARBOXYHEMOGLOBIN 1.8 % THgb (0.0-6.9); HCO3- 18.8 (22-28); HGB O2 SAT 85.3 g/dF (94-100); Methhemoglobin 0.4 % (1.4-1.5); paO2 pAO1 0.08
--- NOTE | 2020-08-31 18:43 | XRAY ---
Indication: Cough. Positive COVID 19. Comparison: August 23, 2020. Portable chest demonstrates mild worsening diffuse bilateral airspace disease again without consolidation/large effusion. Stable chronic right hemidiaphragm elevation with adjacent atelectasis. Heart is not enlarged.
[2020-08-31] MEDS: Sodium Chloride 0.9% 1000 ML 1,000 ML IV SCH (20:40)
[2020-08-31] MEDS: DOXEPIN HCL PO SCH (21:36)
[2020-09-01] MEDS: solu-MEDROL 125 MG IV SCH ×3 (00:08→13:08)
[2020-09-01] MEDS ORDERED: Sodium Chloride 0.9% 250 ML 250 ML IV ONE (00:51)
[2020-09-01] MEDS: Versed 50 MG/ 10 Ml MDV*** 50 MG in Sodium Chloride 0.9% 250 ML 240 ML IV PRN ×3 (01:13→17:04)
[2020-09-01] MEDS: VENTOLIN COMMON CANISTER IH SCH ×2 (01:19→09:36)
[2020-09-01] MEDS: CLARITIN 10 MG PO SCH (08:44)
[2020-09-01] MEDS: Proscar 5 MG PO SCH (08:47)
[2020-09-01] MEDS: Coreg 6.25 MG PO SCH (08:47)
[2020-09-01] MEDS: Flomax 0.4 MG PO SCH (08:47)
[2020-09-01] MEDS: Protonix 40MG Tablet PO SCH (08:48)
[2020-09-01] MEDS: ZOCOR 20MG PO SCH (08:48)
[2020-09-01] MEDS: Pepcid 20 MG VIAL IV SCH (09:14)
[2020-09-01] MEDS: Tussionex Pennkinetic Susp PO SCH (09:15)
[2020-09-01] MEDS: ROCEPHIN 1 Gm-D5w 50 ml Bag** 1 G/50 ML IVPB IV SCH (09:16)
[2020-09-01] MEDS: DUONEB 0.5-3 MG/3 ml Neb IH PRN (09:35)
[2020-09-01] MEDS ORDERED: Zithromax 250 MG TABLET PO SCH (10:00)
--- NOTE | 2020-09-01 13:15 | PROG NOTE ---
DATE: 08/30/2020 HISTORY: Francis Milligan is communicating verbally okay. He wants us to remove his mask to be allowed to . I discussed the fact that without the mask that he will be very short of breath and that certainly we could ease his suffering with morphine. It could get worse, he could be intubated and then we could keep him asleep. Chances of getting off the vent, according to developer analyst, at this point 12 days into treatment is quite remote as he has been on maximum treatment. We started him on his second bout of Remdesivir. He is on Decadron. Most of the medicines we have used have all caused him to be more agitated but at one point 5 mg of Valium orally and a couple milligrams of morphine allowed him to relax and tolerate the mask he is on. This morning I ordered nebulizer treatment with DuoNeb and that seems to have ease a little bit of his feeling of shortness of breath. I talked to his . She understands the situation. She still wants him to continue to be treated aggressively. She understands there is nothing else we can do medically to do anything. He is anticoagulated. Chest has decreased breath sounds at the bases and rales. Heart sounds are 100 and regular. He is afebrile. His UA was normal. IMPRESSION: 1) COVID pneumona. 2) Adult respiratory distress syndrome. 3) At times delirium due to hospitalization. PLAN: Continue to keep him comfortable, oxygen, Decadron, Remdesivir. PROGNOSIS: Guarded.
--- NOTE | 2020-09-01 13:22 | XRAY ---
Indication: Evaluate PICC line. Comparison: One day earlier. Portable chest demonstrates new right arm PICC line with tip projecting over right atrium. New markedly diffuse subcutaneous emphysema bilaterally. Remaining chest unchanged again demonstrating diffuse bilateral airspace disease, right hemidiaphragm elevation, and right base subsegmental atelectasis. Heart is not enlarged.
[2020-09-01] MEDS ORDERED: Zithromax 500 MG/ 250 ML NaCl Premix 500 MG/250 ML IVPB IV SCH (14:00)
[2020-09-01] MEDS ORDERED: Lasix 40 MG/4 ML IV ONE (14:26)
--- NOTE | 2020-09-01 14:54 | PROG NOTE ---
DATE: 08/31/2020 HISTORY: The patient is afebrile. His O2 saturations are 95% on oxygenation alternating from BiPAP and actually went down. CPAP kept his O2 up but he did not use the mask. High flow to 100%. The fact that the high flow is keeping him up now at 95% is an improvement over several days ago. He is not eating hardly anything. He is on IV fluids. His white count went to 18,000 and initially it was elevated and went down to 5,000 and today it is up. I could not get INR today although it has been stable the last few days. He is anticoagulated with Coumadin. His severe agitation is more anxiety and will try to increase his Valium up to 10 mg because the 5 was not working. He had no specific complaints except he does not like the mask. He is still on Remdesivir, Decadron. Decadron sometimes increases the white count but he has been on it now for 12 days. It has not been up every day. I will get UA. The skin I see no lesions there. Will get a PICC line for ease of getting blood draws and losing IV access. Tuesday will start some peripheral hyperalimentation for that also. IMPRESSION: The patient has increased his oxygenation slightly. He has been in critical shape.
[2020-09-01] MEDS ORDERED: Cardizem IV 50 MG/10 ML IV ONE ×2 (16:10→16:25)
[2020-09-01 16:11] LABS: VBG CARBOXYHEMOGLOBIN 3.3 % T HGB (0.0-6.9); VBG HCO3- 18.8 meq/L (22-28); VBG HEMOGLOBIN 14.6; VBG O2 SATURATION 45.1 (95-100); VBG POTASSIUM 4.2 (3.5-5.1); VBG pH 7.35 (7.32-7.42)
[2020-09-01 16:13] LABS: Hematocrit 45.8 % (42-50); Hemoglobin 14.3 gm/dl (12.5-18.0); Mean Cell Volume 87.2 fl (78-100); Mean Corpuscular Hemoglobin 27.2 pg (26-32); Mean Corpuscular Hgb Concent. 31.2 g/dl (32-36); Platelet Count 35 K/mm3 (150-450); Red Blood Count 5.25 M/mm3 (4.1-5.6); Red Cell Distribution Width 20.5 % (11.5-14.0); White Blood Count 23.3 K/mm3 (4.0-10.5)
[2020-09-01 16:25] LABS: Potassium 4.4 mmol/L (3.5-5.1)
[2020-09-01] MEDS ORDERED: CARDIZEM DRIP 100 MG/100 ML D5W 100 ML IV PRN (16:35)
[2020-09-01 16:40] LABS: A-aADO2 631; ABG HEMOGLOBIN 14.9; ABG POTASSIUM 4.6 (3.5-5.1); ARTERIAL BLD GAS O2 SATURATION 78.5 % (95-100); ARTERIAL BLOOD GAS BASE EXCESS -7.1 (-2.0-2.0); ARTERIAL BLOOD GAS FIO2 100 %; ARTERIAL BLOOD GAS PCO2 28 mmHg (35-45); ARTERIAL BLOOD GAS pH 7.38 (7.35-7.45); CARBOXYHEMOGLOBIN 1.4 % THgb (0.0-6.9); HCO3- 16.6 (22-28); HGB O2 SAT 76.9 g/dF (94-100); Methhemoglobin 0.7 % (1.4-1.5); paO2 pAO1 0.07
[2020-09-01 16:41] LABS: ABG SITE RIGHT RADIAL; ALLEN TEST OK? YES; ARTERIAL BLOOD GAS PO2 47 mmHg (75-100)
[2020-09-01 16:41] LABS: INR 4.12 (0.8-3.0); PROTIME 47.2 SECONDS (8.83-12.87)
[2020-09-01] MEDS ORDERED: MORPHINE SULFATE 10 MG/ML ONE (17:21)
[2020-09-01 17:22] LABS: ALBUMIN 2.1 g/dL (3.5-5.0); Calcium 7.1 mg/dL (8.4-10.2); Creatinine 1 1.25 mg/dL (0.66-1.25); EST GLOMERULAR FILTRATION RATE 59.5 ML/MIN; Potassium 4.4 mmol/L (3.5-5.1); Total Protein 4.4 g/dL (6.3-8.2)
[2020-09-01] MEDS: Morphine PCA 1 MG/ML 30 ML IV PRN ×2 (17:23→19:51)
[2020-09-01 18:42] VITALS: BP 87/62; PULSE 85; O2SAT 83
[2020-09-01 19:25] LABS: Slide Review YES
--- NOTE | 2020-09-02 09:14 | PROG NOTE ---
DATE: 09/01/2020 HISTORY: Francis Milligan is somewhat more calm with the continuous drip of Versed now titrated up to 6. He seems to have no side effects from that. He still gets agitated. He has been oxygenating. His oxygen from high flow back to the mask with high pressure BiPAP. He is really unchanged on that. His chest x-ray showed a little worsening today. He definitely drops his oxygen if any of the devices are removed, worsening diffuse bilateral air space disease. He was placed on some antibiotics secondary to white count going up. His INR is 2.2. Will try to place a PICC line. Antibiotics of Rocephin and Zithromax. I talked to his . She advised that she did not want him placed on a vent if he did code which I told her nothing would be successful without intubating him. If it is cardiac he is to be shocked or CPR done briefly. PROGNOSIS: Poor. Disease is advancing.
--- NOTE | 2020-09-02 11:51 | CONS ---
Events noted. Chart reviewed. CONSULT DATE: 09/01/2020 HISTORY: The patient has taken a turn for the worse in his condition. He has been placed on Versed drip. He remains on BiPAP and O2 is monitored. He had a PICC line placed this evening. He was also noted to have significantly elevated D-dimer. PHYSICAL EXAMINATION: Vital signs are noted. HEENT: Normocephalic. Oral exam is limited. CVS: First and second heart sounds are normal, regular, rhythmic. RESPIRATORY: Shows diminished breath sounds. EXTREMITIES: The patient appears mottled in the feet. ASSESSMENT: This is a 79 year old male admitted with: 1) Severe hypoxic respiratory failure. 2) COVID-19 infection. 3) Severe deconditioning. 4) Coagulopathy from COVID-19. RECOMMENDATIONS: I called and discussed with the patient's regarding overall poor prognosis and lack of response to aggressive therapy. The is in agreement. Do Not Resuscitate was agreed upon and verified by nursing staff. The patient is already on Versed. I requested to come here and where at that time will start him on morphine and possibly take him off of BiPAP and let nature follow its course for this very unfortunate gentleman as he could not be revived from the outcome from COVID-19.
== END 2020-09-01 17:35 | disposition expired | DRG 177 ==
LOC: ED 16:25 → MED SURG 18:40 → OBSVTOIN 19:30
PROVIDERS: ADMIT Family Medicine; ATTEND Family Medicine
PROC: 02HV33Z Insertion of Infusion Device into Superior Vena Cava, Percutaneous Approach (ICD-10-PCS; principal; 2020-09-01)
DX: U07.1 COVID-19 (principal); J12.82 Pneumonia due to coronavirus disease 2019; J96.01 Acute respiratory failure with hypoxia; N17.9 Acute kidney failure, unspecified; R05 Cough; Z99.81 Dependence on supplemental oxygen; Z79.899 Other long term (current) drug therapy; Z79.01 Long term (current) use of anticoagulants; R51.9 Headache, unspecified; I10 Essential (primary) hypertension; E78.00 Pure hypercholesterolemia, unspecified; I25.10 Atherosclerotic heart disease of native coronary artery without angina pectoris; Z86.718 Personal history of other venous thrombosis and embolism; R79.1 Abnormal coagulation profile; R41.0 Disorientation, unspecified; F41.9 Anxiety disorder, unspecified; K63.9 Disease of intestine, unspecified
CPT/HCPCS: 36000; 36415; 36430; 36573; 36600; 71045; 80051; 80053; 81001; 82375; 82803; 82805; 83605; 83880; 84484; 85025; 85027; 85379; 85610; 85730; 86850; 86900; 86901; 86931; 87040; 87086; 93005; 93041; 94002; 94003; 94640; 94660; 94762; 96374; 99285; J0456; J0696; J1100; J1170; J1650; J1940; J1956; J2060; J2250; J2270; J2550; J2930; J3430; J7609; A9270-GY